=== PATIENT | female | born 1995 | race Caucasian/White ===

== ENCOUNTER 2017-09-10 22:51 | Emergency (ER) | payer BC, MEDICAID, SELFPAY ==
[2017-09-10 22:53] VITALS: BP 108/68; PULSE 78; RESP 18; TEMP 36.6; O2SAT 100; BMI 31.9
--- NOTE | 2017-09-10 23:22 | ED.VISSUMM ---
- ER Visit Summary Date of Service: 09/10/17 Chief Complaint: [] History of Present Illness: The patient is a 22 F [] Physical Examination: [] Test Results: [] Emergency Department Course and Treatment: [] Treatment Plan: [] Disposition: [] Impression: [] This note was generated with [employer] dictation software. It may contain incorrect words, spelling, and punctuation that were not noted in review of the chart prior to signing ED Disposition - Plan for ED Patient: Disposition: Home or Assisted Living Chief Complaint: Laceration Instructions: ED Laceration All, ED Laceration Ext Skin Glue Referrals: Care Physician,No Primary [Primary Care Provider] -
--- NOTE | 2017-09-10 23:23 | ED.VISSUMM ---
- ER Visit Summary Date of Service: 09/10/17 Chief Complaint: Hand laceration History of Present Illness: The patient is a 22 F incised her left hand with a knife prior to arrival no other injury unknown tetanus. Physical Examination: 1.5 cm laceration palm of her left hand no neurovascular compromise Test Results: [] Emergency Department Course and Treatment: Wound was approximated with Dermabond. Treatment Plan: [] Disposition: Discharged in stable condition Impression: 1.5 cm laceration left hand This note was generated with [employer] dictation software. It may contain incorrect words, spelling, and punctuation that were not noted in review of the chart prior to signing ED Disposition - Plan for ED Patient: Disposition: Home or Assisted Living Chief Complaint: Laceration Instructions: ED Laceration All, ED Laceration Ext Skin Glue Referrals: Care Physician,No Primary [Primary Care Provider] -
== END 2017-09-10 23:43 | disposition home or self-care (01) ==
LOC: ED 23:27
PROVIDERS: Emergency Provider Emergency Medicine
DX: S61.412A Laceration without foreign body of left hand, initial encounter (principal); W26.0XXA Contact with knife, initial encounter; Y93.9 Activity, unspecified; Y92.9 Unspecified place or not applicable
CPT/HCPCS: 12001; 99282

== ENCOUNTER 2017-12-12 01:12 | Emergency (ER) | payer BC, MEDICAID, SELFPAY ==
[2017-12-12 01:14] VITALS: BP 103/66; PULSE 79; RESP 18; TEMP 36.8; O2SAT 96; BMI 30.4
[2017-12-12 02:01] LABS: Bacteria 0 SEEN /hpf (None Seen); Mucous, Urine 0 SEEN /hpf (<or=2+); Red Blood Cells-Urine 0 SEEN /hpf (0-5); Squamous Epithelial Cells - UA 0 SEEN /hpf (5-10)
[2017-12-12 02:03] LABS: Color, Urine Yellow (Yellow); Glucose, Dipstick Normal (Normal); Ketone-Dipstick Negative (Negative); Leukocyte Esterase-Dipstick 500 /ul (Negative); Nitrite-Dipstick Negative (Negative); Occult Blood-Urine Negative /ul (Negative); Protein-Dipstick Negative (Negative); Urine Bilirubin Dipstick Negative (Negative); Urine Clarity Clear (Clear); Urine Urobilinogen 1 mg/dl (Normal)
[2017-12-12 02:06] LABS: Internal QC Validated? YES +Cl - CLEAR BKGD; Pregnancy, Urine Negative Negative
[2017-12-12 02:09] LABS: White Blood Cells 0-5 SEEN /hpf (0-5)
--- NOTE | 2017-12-12 02:50 | ED.DCSUM_ITS ---
- ER Visit Summary Date of Service: 12/12/17 Chief Complaint: Vaginal pain History of Present Illness: The patient is a 22 F who presents with vaginal pain. This is been present for about 4 days. It is sharp and burning. She denies vaginal bleeding or vaginal discharge. She denies dysuria frequency urge ncy or hematuria. Her last menstrual period was December 03 through the . Review of systems otherwise negative. Physical Examination: Afebrile vitals are normal Heart regular Lungs clear Abdomen soft and nontender Speculum examination does show some vaginal irritation as well as cervical erythema and thin white discharge Test Results: UA shows 500 leukocyte esterase otherwise normal. Urine negative. Emergency Department Course and Treatment: Patient does have some signs of vaginitis and cervicitis. We will empirically treat for sexually transmitted infection with intramuscular Rocephin and oral azithromycin. We did send off GC and chlamydia but will not get these results back tonight. She was advised to follow-up as an outpatient and was referred to gynecology. She understands return for new or worsening symptoms. She was discharged. Treatment Plan: [] Disposition: Discharge Impression: Cervicitis Vaginitis This note was generated with [employer] dictation software. It may contain incorrect words, spelling, and punctuation that were not noted in review of the chart prior to signing ED Disposition - Plan for ED Patient: Chief Complaint: Female C/O Referrals: Care Physician,No Primary [Primary Care Provider] -
--- NOTE | 2017-12-12 02:50 | ED.DEP ---
ED Disposition - Plan for ED Patient: Chief Complaint: Female C/O Instructions: ED VD Cervicitis Treated Referrals: Care Physician,No Primary [Primary Care Provider] - Rosibel Malik MD [STAFF PHYSICIAN] -
[2017-12-12] MEDS: Azithromycin 250 MG Tablet 1000 MG PO (02:54)
[2017-12-12] MEDS: Ceftriaxone 500 MG Vial 250 MG IM (03:12)
[2017-12-12 03:15] VITALS: BP 113/78; PULSE 71; RESP 17; O2SAT 99
[2017-12-12 07:11] LABS: Chlamydia Trachomatis by PCR Negative (Negative); Neisserai gonorrhoeae by PCR Negative (Negative); Probe Check PASS; Sample Adequacy Control PASS; Specimen Processing Control PASS
== END 2017-12-12 03:31 | disposition home or self-care (01) ==
PROVIDERS: Emergency Provider Emergency Medicine
DX: N76.0 Acute vaginitis (principal); N72 Inflammatory disease of cervix uteri; B96.89 Other specified bacterial agents as the cause of diseases classified elsewhere
CPT/HCPCS: 81001; 81025; 87491; 87591; 96372; 99283

== ENCOUNTER 2018-07-08 03:12 | Emergency (ER) | payer BC, MEDICAID, SELFPAY ==
[2018-07-08 03:14] VITALS: BP 110/78; PULSE 81; RESP 16; TEMP 36.7; O2SAT 98; BMI 31.1
--- NOTE | 2018-07-08 03:25 | ED.VIS.GEN ---
History of Present Illness Chief Complaint: Abscess Informant: Patient Narrative: She states she developed a small pustule on her right antecubital region 2 days ago. It started as a pimple. She is broken up and twice with a small amount of fluid and pus. She noticed some surrounding redness today with pain. She is never had this before. She did get a new tattoo a month ago. Denies IV drug use. Denies fevers or chills. Comes in for further evaluation. Current severity is mild. No fluctuance. - Past Medical History (1) Abdominal pain Status: Acute (2) Constipation Status: Acute (3) Ovarian cyst Status: Acute (4) Proctitis Status: Acute Past Medical History - Allergies and Home Meds Allergies/Adverse Reactions: Allergies ondansetron HCl [From Zofran (as hydrochloride)] Allergy (Verified 07/08/18 03:13) Hives Primary Care Physician: Care Physician,No Primary [Primary Care Provider] - Prior records reviewed: Yes Surgical History: noncontributory Lives: With Family Smoking Status: Never smoker Alcohol: None Drugs: None Review of Systems General: Denies: Chills, Fever, Sweats Eyes: Denies: Visual changes - bilaterally, Diplopia ENT: Denies: Rhinorrhea, Sore throat Cardiovascular: Denies: Chest pain, Palpitations Respiratory: Denies: Dyspnea, Cough, Dyspnea on exertion Gastrointestinal: Denies: Abdominal pain, Nausea, Vomiting, Diarrhea, Melena, Hematochezia Genitourinary: Denies: Dysuria, Hematuria, Frequency Musculoskeletal: Denies: Back pain, Extremity Pain Skin: Reports: Abscess. Denies: Rash, Wounds Neurological: Denies: Headache, Weakness, Numbness Physical Exam Vital Signs/Narrative: Vital Signs Temp Pulse Resp BP Pulse Ox 07/08/18 03:14 98.0 F 81 16 110/78 98 General: Well nourished, Well developed, No Acute Distress Head: Normocephalic, Atraumatic Eyes: Perrl, EOMI ENT: Moist mucous membranes, No rhinorrhea Neck: Supple, Nontender Cardiovascular: Regular rate, Regular rhythm, No murmurs Respiratory: No distress, CTA bilaterally, Chest nontender Abdomen: Soft, Nontender, Nondistended, Normal bowel sounds Back: Nontender, Normal Inspection Extremities: Nontender, No edema Skin: - - Very small skin pustule in the right antecubital measuring 2 x 2 mm. Squeezed with a tiny amount of green fluid. This is a very minuscule amount. No fluctuance. No large abscess. Mild surrounding erythema measuring 1-2 cm surrounding consistent with cellulitis. Negative for: Normal color, No rash Neurological: Alert, Oriented x3, Cranial nerves II-XII grossly intact, Normal Strength, Normal Sensation Psychological: Normal affect, Normal Mood Diagnostic/Tx/Re-eval - Medical Decision Making Patient has a superficial skin abscess. I squeeze this. There is a mild amount of fluid but no significant pus. Placed on Bactrim. She has a very slight cellulitis. This is due to her boil. She will follow-up as an outpatient. There is nothing to incise and drain as it is small ED Disposition - Plan for ED Patient: Disposition: Home or Assisted Living Diagnosis: Skin abscess Instructions: ED Staph Infec Abx Tx Only Prescriptions: Smz/Tmp Ds [Bactrim Ds] 1 tab PO BID #14 tab Referrals: Care Physician,No Primary [Primary Care Provider] - Jonathan Duong MD [STAFF PHYSICIAN] -
[2018-07-08] MEDS: Smz/Tmp Ds Tablet 1 TABLET PO (03:34)
[2018-07-08 03:44] VITALS: RESP 16
== END 2018-07-08 03:44 | disposition home or self-care (01) ==
LOC: ED 03:41
PROVIDERS: Emergency Provider Emergency Medicine
DX: L02.413 Cutaneous abscess of right upper limb (principal); L03.113 Cellulitis of right upper limb
CPT/HCPCS: 99283

== ENCOUNTER 2018-07-09 16:53 | Emergency (ER) | payer BC, MEDICAID, SELFPAY ==
[2018-07-08 03:14] VITALS: BMI 31.1
[2018-07-09 16:55] VITALS: BP 125/68; PULSE 94; RESP 18; TEMP 36.6; O2SAT 97; BMI 31.7
--- NOTE | 2018-07-09 19:15 | RAD_ITS ---
STUDY: X-RAY - RIGHT ELBOW REASON FOR EXAM: Female, 23 years old. Redness and swelling of the right elbow. Question infection. Question foreign body. TECHNIQUE: view(s) of the elbow. COMPARISON: None. FINDINGS: Normal visualized humerus, radius and ulna. Normal radiocapitellar and ulnotrochlear articulations. There is no acute fracture, dislocation or destructive osseous pathology. There is mild soft tissue prominence of the antecubital space.. There is no visualized foreign body. RAD/Elbow min 3 Views IMPRESSION: Soft tissue prominence of the antecubital space without underlying osseous or articular abnormality. Electronically Signed: Woody Haji DO at 19:34 EDT Tel [phone], Service support ,
[2018-07-09] MEDS: Doxycycline 100 MG CAPSULE PO (19:34)
[2018-07-09] MEDS: HYDROmorphone 1 MG/ML Syringe IM (19:34)
[2018-07-09 19:38] VITALS: RESP 18
--- NOTE | 2018-07-09 20:03 | ED.DCSUM_ITS ---
- ER Visit Summary Date of Service: 07/09/18 Chief Complaint: Abscess History of Present Illness: The patient is a 23 F who has no primary care physician. She has a history of ankylosing spondylitis and is on Remicade. She reports that she has swelling in her right antecubital fossa began 6 days ago. She has a an aching, sharp pain that is 10-10 at worst 9-10 currently. Is worsened by movement relieved by rest. She is right-hand dominant. Her tetanus is up-to-date. She denies any constitutional symptoms. No fever, chills, nausea, or vomiting. Patient reports that she began Bactrim 2 days ago and this is actually worsened rather than improved. Physical Examination: Vitals: Stable. Afebrile. General: Well-nourished and well-developed. Head: Normocephalic atraumatic. Neck: Supple, no lymphadenopathy. No JVD. Nontender. Cardiovascular: Regular rate and rhythm. No murmurs. Respiratory: No respiratory distress. Clear to auscultation bilaterally. Abdominal: Soft, nontender, nondistended, normal bowel sounds. No guarding, rebound, or peritoneal signs. Back: Nontender. Extremities: 3 cm of erythema just proximal to the antecubital fossa on the right. Is mildly tender to palpation. There is no lymphangitic spread. She is neurovascular intact distally. Skin: Normal color, no rash. Neurologic: Alert and oriented ?3. Cranial nerves II through XII are intact. Normal strength and sensation. Psych: Normal affect. Test Results: X-ray shows no foreign body. Emergency Department Course and Treatment: Patient was given a dose of Dilaudid IM and doxycycline p.o. She had an I&D performed. She tolerated this well. Treatment Plan: Patient be discharged instructions to follow-up Dr. Londono in 2 days for a wound check. Return to the emergency department for any wors ening symptoms. She is placed on [place] and doxycycline. She also given a prescription for Bactroban ointment. Disposition: To home in improved and stable condition. Impression: 1. Abscess right arm. 2. I&D. Procedure Note: Abscess was cleansed with chlorhexidine soap. Anesthetized with 1% lidocaine without epinephrine. An incision was made with an 11 scalpel blade. A moderate amount of pus was drained. Curved hemostats were used to break up loculations. The wound was copiously irrigated with normal saline. It was loosely packed with iodoform gauze. The patient tolerated it well. This note was generated with [employer] dictation software. It may contain incorrect words, spelling, and punctuation that were not noted in review of the chart prior to signing ED Disposition - Plan for ED Patient: Disposition: Home or Assisted Living Instructions: ED Abscess IandD Prescriptions: Hydrocodone Bitart/Apap 5-325 [[place] 5MG-325MG] 1 tablet PO Q4H PRN PRN 2 Days #10 tablet PRN Reason: Pain Doxycycline 100 mg PO BID #14 capsule Mupirocin [Bactroban] 1 applic TOPICAL TID #1 tube Referrals: Katherine Londono DO [STAFF PHYSICIAN] - 2 Days for wound check
[2018-07-09 20:35] VITALS: BP 103/64; PULSE 70; RESP 18; O2SAT 98
== END 2018-07-09 20:30 | disposition home or self-care (01) ==
PROVIDERS: Emergency Provider Emergency Medicine
DX: L02.413 Cutaneous abscess of right upper limb (principal); M45.9 Ankylosing spondylitis of unspecified sites in spine
CPT/HCPCS: 10060; 73080; 96372; 99283

== ENCOUNTER 2018-07-11 13:52 | Observation (INO) | payer BC, MEDICAID, SELFPAY ==
[2018-07-11] VITALS (10 sets, daily range): BP systolic 89–116; BP diastolic 61–87; PULSE 63–110; RESP 14–18; TEMP 36.4–36.8; O2SAT 93–100; BMI 31.7; BMI 31.6
--- NOTE | 2018-07-11 09:21 | CT_ITS ---
STUDY: CT RIGHT ELBOW WITHOUT CONTRAST REASON FOR EXAM: Right elbow pain, abscess drained in the emergency room, scheduled for surgery. History of ankylosing spondylitis. TECHNIQUE: Transaxial CT imaging of the elbow was performed. Sagittal and coronal images were reconstructed. Individualized dose optimization techniques were used for this CT. COMPARISON: Radiographs 07/09/2018. FINDINGS: Normal visualized humerus, radius and ulna. Normal radiocapitellar and ulnotrochlear articulations. There is soft tissue swelling at the anterior aspect of the elbow and a small soft tissue defect (axial images 51-56) and a small fluid collection containing two small pockets of gas (axial images 58, 59) measuring 0.6 x 1.0 cm (AP x transverse), a suspected soft tissue abscess by history. There is no demonstrated joint effusion CT/Extremity Upper without Contra IMPRESSION: Soft tissue swelling with suspected small soft tissue abscess. No demonstrated osseous destruction to indicate osteomyelitis. Electronically Signed: Moreno Olivas MD at 9:55 EDT Tel , Service support ,
[2018-07-11 10:20] LABS: Internal QC Validated? YES +Cl - CLEAR BKGD; Pregnancy, Urine Negative Negative
--- NOTE | 2018-07-11 10:31 | PCM.OPRPT ---
Report of Operation Date of Procedure: 07/11/18 Pre-Operative Diagnosis: right antecubital abscess after remicaide infusion Post-Operative Diagnosis: same Surgery/Procedure Performed:: right antecubital incision/drainage, irrigation and debridement
[2018-07-11] MEDS: Cefazolin 2 GM in 0.9% Normal Saline 100 ML IV (13:20)
--- NOTE | 2018-07-11 13:51 | OP.PCM_ITS ---
Problem List (1) Abscess Status: Acute (2) Cellulitis Status: Acute Qualifiers: Site of cellulitis: extremity Laterality: right Report of Operation Date of Procedure: 07/11/18 Pre-Operative Diagnosis: right superficial abscess of antecubital fossa Post-Operative Diagnosis: same Surgery/Procedure Performed:: incision and drainage/irrigation and debridement of right superficial antecubital fossa Type of Anesthesia:: General Anesthesiologist: Brown Lopez Estimated Blood Loss (mL): minimal Fluids Replaced: 800ml lr Description of Procedure: Preop note Patient is a 23-year-old female who about 15 days ago had a Remicade infusion to her right and the capital fossa. Few days later he noticed a pimple started getting increasing red and warm went and saw the emergency room they placed her on a total place start Bactroban and sent her home it increased and worsened she went back to the ER where they lanced it and sent her home on antibiotics. She continued to worsen and was to my office today. Patient states that she is about the same she has not gotten worse however the redness seems to be spreading slightly medial. No fever chills or other constitutional symptoms. Patient presented to my office and we had a stat CT scan that showed air concerning for an abscess so he was taken urgently to the operating room. Risks benefits and alternatives surgery discussed the patient. Risks include but not limited to blood loss of blood clot, infection, neurovascular injury, failure procedure, loss of life and loss of limb. Patient is aware he would like to proceed with right antecubital fossa irrigation and debridement incision and drainage. Operative note next Patient seen and examined preop holding area. Right elbow was marked. Patient brought to the operating placed supine on the operating table. Signed, anesthesia and antibiotics was held until cultures were taken. The right arm was prepped and draped in usual sterile fashion with a tourniquet around her upp er arm. A timeout was performed. We elevated the arm and tourniquet was raised to a pressure of 250 torr. We then extended the incision at the site of where she had a pimple that was lanced by the ER both medial and laterally about 4 cm. we used a 15 blade and dissected down to Lamisil and the subcutaneous tissue which was debrided gently down to the muscle which is everything with debride any loose tissue was gently debrided out and knee there is no is a little bit of purulence that occurred on the more proximally. We took cultures and antibiotics was then started. We then again irrigated the incision with copious muscle sterile saline. We closed our incision with 4-0 nylon leaving a small x- ray impacted with one quarter iodoform packing. Sterile dressings were applied and an Kt wrap. Patient transferred to recovery room in stable condition no complications patient tired procedure well. Tourniquet total tourniquet time 20 minutes. Postoperative We will remove packing tomorrow next Consult wound care Call increased pain numbness tingling further issues arise Continue her doxycycline as an outpatient as Ancef overnight Weight-bear as tolerated bilateral lower extremity nonweightbearing right arm
[2018-07-11 14:46] LABS: Hematocrit 36.4 % (37-47); Hemoglobin 12.4 g/dl (12.0-15.0); Mean Corp Hgb Conc 34.1 g/gl (32-36); Mean Corpuscular Hgb 29.5 pg (27.0-32.0); Mean Corpuscular Volume 86.5 fL (81-99); Platelet Count 240 K/mm3 (150-450); RBC Distribution Width CV 11.5 % (11.6-14.6); RBC Distribution Width SD 35.9 fl (35.1-43.9); Red Blood Count 4.21 M/mm3 (4.2-5.4); Scan Indicated on CBC? Y/N NO; White Blood Count 7.2 K/mm3 (4.4-11.0)
[2018-07-11 17:33] LABS: Erythrocyte Sedimentation Rate 33 mm/hr (0-20)
[2018-07-11] MEDS: HYDROcodone Bitartrate/Apap 5/325 Tablet PO (17:48)
[2018-07-11] MEDS: 0.9% NaCl Peripheral Flush Adult/Peds IV (21:44)
[2018-07-11] MEDS: Cefazolin 1 GM/50 ML BAG IV (21:44)
[2018-07-12 01:55] VITALS: BP 105/69; PULSE 69; RESP 16; TEMP 36.5; O2SAT 97
[2018-07-12] MEDS: HYDROcodone Bitartrate/Apap 5/325 Tablet PO ×3 (02:00→12:54)
[2018-07-12] MEDS: Cefazolin 1 GM/50 ML BAG IV (05:19)
[2018-07-12] MEDS: 0.9% NaCl Peripheral Flush Adult/Peds IV (05:19)
[2018-07-12 06:54] LABS: Absolute Lymphocyte Count 1.66 X10^3/ul (0.83-4.51); Absolute Neutrophil Count 8.6 X10^3/uL (2.0-7.7); Basophil# 0.02 X10^3/uL; Basophil% 0.2 % (0-1); Eosinophil# 0.02 X10^3/uL; Eosinophils% 0.2 % (0-5); Hematocrit 38.4 % (37-47); Hemoglobin 12.9 g/dl (12.0-15.0); Lymphocyte # 1.66 X10^3/ul (4.0); Lymphocyte % 14.6 % (19-41); Mean Corp Hgb Conc 33.6 g/gl (32-36); Mean Corpuscular Hgb 29.1 pg (27.0-32.0); Mean Corpuscular Volume 86.7 fL (81-99); Mean Platelet Vol. 11.4 fl (6.2-12.0); Monocyte# 1.09 X10^3/uL; Monocyte% 9.6 % (0-10); Neutrophil # 8.58 X10^3/uL (2.7-7.7); Neutrophil % 75.1 % (47-70); Platelet Count 258 K/mm3 (150-450); RBC Distribution Width CV 11.4 % (11.6-14.6); RBC Distribution Width SD 35.3 fl (35.1-43.9); Red Blood Count 4.43 M/mm3 (4.2-5.4); White Blood Count 11.4 K/mm3 (4.4-11.0)
[2018-07-12 06:56] LABS: POSITIVE COUNT NO; POSITIVE DIFFERENTIAL NO; POSITIVE MORPHOLOGY NO
[2018-07-12 07:27] VITALS: BP 118/75; PULSE 56; RESP 16; TEMP 36.5; O2SAT 100
--- NOTE | 2018-07-12 09:10 | NURSING ---
wound photo: right antecub
--- NOTE | 2018-07-12 12:40 | PCM.DC.ORTHO ---
Discharge Diet: No Restrictions Discharge Activity: May not drive while taking narcotic pain medications., May Not Shower, May Take a Tub Bath - Do not soak or immerse right arm. Try and keep try and pat dry if it gets wet at all. Return to work on:: 08/05/18 - tentative return to work based on recovery May resume sexual activity in: No Restrictions Weight Bearing Status: Weight bearing as tolerated Lifting Restrictions: 2 pound lifting restriction until follow-up Keep extremity elevated above heart level: Right Arm Additional Activity Instructions:: No lifting, hanging from the arm, or forceful or repeated elbow flexion Call your doctor if your incision/area has: Sudden Increased Bleeding, Increased Pain/ Swelling, Increased Redness, Foul Smelling Discharge, Swelling at the incision site Call your doctor if you observe: Fever of 101 or Higher, Numbness or Tingling, Change in Color, Shortness of breath, Dizziness, Swelling in the ankles, Chest pain, Calf discomfort, Uncontrolled pain Suture Line Care: Avoid Pulling/Pushing, Avoid Pinching/Bending Change Dressing in (Days):: 48 - hours Cleanse incision/area with: Keep Dressing Clean & Dry Allergies/Adverse Reactions: Allergies ondansetron HCl [From Zofran (as hydrochloride)] Allergy (Verified 07/09/18 16:53) Hives promethazine [From Phenergan] Adverse Reaction (Verified 07/09/18 20:04) Other pt states her body was tingling and she was uncomfortable. Medications to take at Discharge Calcium Carbonate [Calcium] 600 mg PO DAILY 03/18/15 Cholecalciferol (VIT D3) [Vitamin D] 1,000 unit PO DAILY 03/18/15 Celecoxib [Celebrex] 200 mg PO BID 03/07/17 Doxycycline 100 mg PO BID #14 capsule 07/09/18 Infliximab [Remicade] 5 mg IV QMONTH 07/09/18 Mupirocin [Bactroban] 1 applic TOPICAL TID #1 tube 07/09/18 Primary Care Physician: Care Physician,No Primary [Primary Care Provider] - Test Results: Test results from this visit will be discussed in further detail at your follow-up appointment, if applicable. Please Follow Up With: uJdie Cardenas MD - Wound center When: Sunday05-17-18 Proposed Discharge Date: 07/12/18
--- NOTE | 2018-07-12 12:44 | DCINST_ITS ---
Discharge Diet: No Restrictions Discharge Activity: May not drive while taking narcotic pain medications., May Not Shower, May Take a Tub Bath - Do not soak or immerse right arm. Try and keep try and pat dry if it gets wet at all. Return to work on:: 08/05/18 - tentative return to work based on recovery May resume sexual activity in: No Restrictions Weight Bearing Status: Weight bearing as tolerated Lifting Restrictions: 2 pound lifting restriction until follow-up Keep extremity elevated above heart level: Right Arm Additional Activity Instructions:: No lifting, hanging from the arm, or forceful or repeated elbow flexion Call your doctor if your incision/area has: Sudden Increased Bleeding, Increased Pain/ Swelling, Increased Redness, Foul Smelling Discharge, Swelling at the incision site Call your doctor if you observe: Fever of 101 or Higher, Numbness or Tingling, Change in Color, Shortness of breath, Dizziness, Swelling in the ankles, Chest pain, Calf discomfort, Uncontrolled pain Suture Line Care: Avoid Pulling/Pushing, Avoid Pinching/Bending Change Dressing in (Days):: 48 - hours Cleanse incision/area with: Keep Dressing Clean & Dry Allergies/Adverse Reactions: Allergies ondansetron HCl [From Zofran (as hydrochloride)] Allergy (Verified 07/09/18 16:53) Hives promethazine [From Phenergan] Adverse Reaction (Verified 07/09/18 20:04) Other pt states her body was tingling and she was uncomfortable. Medications to take at Discharge Calcium Carbonate [Calcium] 600 mg PO DAILY 03/18/15 Cholecalciferol (VIT D3) [Vitamin D] 1,000 unit PO DAILY 03/18/15 Celecoxib [Celebrex] 200 mg PO BID 03/07/17 Doxycycline 100 mg PO BID #14 capsule 07/09/18 Infliximab [Remicade] 5 mg IV QMONTH 07/09/18 Mupirocin [Bactroban] 1 applic TOPICAL TID #1 tube 07/09/18 Primary Care Physician: Care Physician,No Primary [Primary Care Provider] - Test Results: Test results from this visit will be discussed in further detail at your follow- up appointment, if applicable. Please Follow Up With: Judie Cardenas MD - Wound center When: Sunday05-17-18 Proposed Discharge Date: 07/12/18
[2018-07-12 12:55] VITALS: BP 106/66; PULSE 73; RESP 16; TEMP 36.6; O2SAT 99
--- NOTE | 2018-07-12 13:52 | CASEMGMT ---
RN CM NOTE: Script for wound care supplies received from [facility]. Script placed with discharge instructions for RN to give to pt. Linda CINTRONN RN CM
--- NOTE | 2018-07-12 15:42 | NURSING ---
pt and mother shown how to change dressing to right arm.
== END 2018-07-12 15:32 | disposition home or self-care (01) ==
LOC: MS3 14:37
PROVIDERS: Anesthesiology; Admitting Provider Orthopaedic Surgery; Referring Provider Orthopaedic Surgery; Visit Provider Orthopaedic Surgery
PROC: (CPT 11042; principal; 2018-07-11 12:05)
DX: L02.413 Cutaneous abscess of right upper limb (principal); L03.113 Cellulitis of right upper limb; Z79.899 Other long term (current) drug therapy; M45.9 Ankylosing spondylitis of unspecified sites in spine; B96.89 Other specified bacterial agents as the cause of diseases classified elsewhere; M79.89 Other specified soft tissue disorders; B99.9 Unspecified infectious disease
CPT/HCPCS: 00400; 11042; 36415; 73200; 81025; 85025; 85027; 85652; 86140; 87070; 87075; 87077; 87102; 87186; 87205; 87206; 96365; 96366; 99218; J7120; A4216; G0378; G0379; J2405

== ENCOUNTER 2018-07-17 09:26 | Outpatient (RCR) | payer BC, SELFPAY ==
[2018-07-11 15:40] VITALS: BMI 31.6
== END 2018-08-16 23:59 ==
LOC: WC 09:26
PROVIDERS: Visit Provider Internal Medicine
DX: Z09 Encounter for follow-up examination after completed treatment for conditions other than malignant neoplasm (principal)

== ENCOUNTER 2018-08-21 09:00 | Outpatient (RCR) | payer BC, MEDICAID, SELFPAY ==
[2018-07-25 13:35] VITALS: BMI 31.6
--- NOTE | 2018-07-29 12:35 | HP.OTEVAL ---
Patient's Visit Information CARYN LEMUS is a 23 year old F, referred to Occupational Therapy by Katherine Londono DO, with a diagnosis of s/p L and D of Right Antecubital fossa. Date of Evaluation: 07/29/18 Occupational Therapist: Deysi Elizabeth, OTR/L - Subjective Subjective: Caryn arrived to OT evaluation on this date of 07/29/18. She noted she is s/p drainage of R elbow over antecubital fossa on 07/11/18. 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 She is required to light about 25 lbs a part consistently throughout the day. - ADLs Dressing: Bra Eating: Cut food Grooming: double surface operator, Curling iron Kitchen: Chop with knife, Peel fruits & vegetables, Open jars, Open bottle caps, Ziplock bags, Lift gallon of milk, Pour from pitcher, Lift saucepan, Take dish out of oven, Load/unload fur tailor Household: Vacuum, Sweep/mop Miscellaneous: Unlock front door, Pump gas, Drive - Pain Right Elbow 3 Pain Intensity Range: 1, 3, 7, 8 - ROM Elbow: R 0-120, L 0-125; supination R 0-85, L 0-81 Forearm: WFL Wrist: WFL MP: WFL PIP: WFL DIP: WFL - Strength Venue Attendant: flexion R 53, L 55; extended R 54 (pain: 3/10), L 60 Lateral Pinch: R 16, L 16 Tripod Pinch: R 14, L 13 Tip-to-Tip Pinch: R 12, L 10 Strength Comments: Increased pain with resistance at hand. - Sensation Thumb: R 2.83, L 2.83 Index: R 2.83, L 2.83 Middle: R 2.83, L 2.83 Ring: R 2.83, L 2.83 Little: R 2.83, L 2.83 Sensation Comments: She noted she is getting tingling in and around scar; noted if she cooks too long she noted increased tingling radiaiting down to PF. She would benefit froms car management techniques and desensitization protocol for scar. - Nine Hole Peg Right: 24.0 6 s Left: 22.30 s - Quick DASH-Disab of Arm,Shoulder& Hand Quick DASH Score: 38.3325 - Goals Goal:: Caryn to increased R linoleum layer by 10-15 lbs to promote increased ROM and strength 4/5 trials 80% of the time to promote returning to PLOF by d/c. Goal:: Caryn to complete pain management techniques to manage pain at 1/10 for repetitive movement tasks 4/5 trials 80% of the time by d/c. Goal:: Caryn to complete edema management techniques to promote increased ROM and decrease pain as needed t/o the day 4/ 5 trials 80% of the time by d/c. Goal:: Caryn to complete desensitization program and daily scar massage to promote increased movement and decreased tingling sensation and hypersensitivty 4/5 trials 80% of the time by d/c . Goal:: Caryn to complete ergonomic and joint protection training to promote increased ability to complete returning to FT Work at PLOF 4/5 trials 80% of the time by d/c. Goal:: Caryn to be be mod I to complete daily HEP for ROM, scar massage, edema management (if needed), and strengthening 4/5 trials 80% of the time to promote returning to PLOF by d/c. - Rehabilitation General Assessment: Caryn arrived to OT evaluation on this date of 07/29/18. She is s/p drainage of right antecubital fossa that MRSA infection had been confirmed. She has significant PMHx of ankylosing spondylitis. Caryn exhibits good ROM but decreased strength and increased pain with movement of right elbow. She exhibits some decreased coordination skills of R dominant hand through 9-hole pegboard test. Caryn would benefit from skilled OT services to promote increased ROM, strength, desensitization of scar and increased ability to return to PLOF. Rehabilitation Potential: Good - Anticipated Interventions Anticipated Interventions: A/AAROM/PROM, Strengthening, Edema Control, Desensitization, Sensory Retraining, Wound Care, Modalities, Joint Protection/Energy Conservation, Ergonomic Education, Fine Motor Coord/Edwar, Cognitive Skills, ADL Training, Caregiver Training, Home Program - Visit Plan Frequency: 2x /Week Duration: 4 Weeks General Plan: Caryn to complete skilled OT to promote ROM, strength, edema management, desensitization techniques, scar management, and general progress to return to PLOF for all ADl/IAdls tasks. TEXT: Thank you for the opportunity to evaluate your patient. For Medicare and Medicare HMO plans, please review the plan of care and approve it. It will need to be FAXED BACK to us at [phone] for Medicare purposes. Please let me know if there are questions or concerns regarding this plan of care. Physician Signature: Date:
--- NOTE | 2018-08-20 09:02 | HP.OTREVAL ---
Katherine Londono, DO, It has been my pleasure to treat CARYN LEMUS over the last 6 visits for s/p L and D of Right Antecubital fossa. Please see the progress note below for an update on the occupational therapy plan of care! Subjective: Arrived and noted pain has increased over the last week since returning to work. Noted she is completing work tasks but is getting ' sharp shooting pains. Objective/Function: Measurements: Strength. Cash Van Salesperson: flexed R 49, L 54; extended R 48, L 50. Lateral: R 15, L 15. Tripod: R 11, L 12. Pincer: R 10, L 10. Scar tender with palpation. No sign of infection but some mild routine reddness from healing. Plan Frequency: 2x /Week Duration: 4 Weeks Visits in this POC: 8 Plan: continue POC ulnar nerve glides as well as OT for next one- two visits. Continued HEP as instructed and trial some theraband exercises to promote increased strength and stability to elbow. Goals - Goals Goal:: Caryn to increased R croze cutter helper by 10-15 lbs to promote increased ROM and strength 4/5 trials 80% of the time to promote returning to PLOF by d/c. Goal:: Caryn to complete pain management techniques to manage pain at 1/10 for repetitive movement tasks 4/5 trials 80% of the time by d/c. Goal:: Caryn to complete edema management techniques to promote increased ROM and decrease pain as needed t/o the day 4/ 5 trials 80% of the time by d/c. Goal:: Caryn to complete desensitization program and daily scar massage to promote increased movement and decreased tingling sensation and hypersensitivty 4/5 trials 80% of the time by d/c . Goal:: Caryn to complete ergonomic and joint protection training to promote increased ability to complete returning to FT Work at PLOF 4/5 trials 80% of the time by d/c. Goal:: Caryn to be be mod I to complete daily HEP for ROM, scar massage, edema management (if needed), and strengthening 4/5 trials 80% of the time to promote returning to PLOF by d/c. Anticipated Interventions Anticipated Interventions: A/AAROM/PROM, Strengthening, Edema Control, Desensitization, Sensory Retraining, Wound Care, Modalities, Joint Protection/Energy Conservation, Ergonomic Education, Fine Motor Coord/Edwar, Cognitive Skills, ADL Training, Caregiver Training, Home Program Please do not hesitate to contact me at [phone] by phone or if you have questions or concerns regarding this new plan of care! Sincerely, Deysi Elizabeth, OTR/L
--- NOTE | 2018-08-21 09:35 | HP.OTREVAL ---
Katherine Londono, DO, It has been my pleasure to treat CARYN LEMUS over the last 7 visits for s/p L and D of Right Antecubital fossa. Please see the progress note below for an update on the occupational therapy plan of care! Subjective: Arrived and noted pain about 5/10 pain. Noted she can complete 3-3.5 hours at work prior to getting 'sharp shooting pain'. She noted that has been different jobs of repetitively lifting about 10 lbs. She noted she often notices that when getting hot or increased humidity R elbow gets red and hurts. She does have PMHx significant for RA like arthritis. Objective/Function: Completed reassessment on this date of 09/04/18: Strength. Dance Director: flexed R 53, L 50; extended R 56, L 46. Lateral: R 16, L 16. Tripod: R 15, L 12. Pincer R 12, L 12. Measurements on 08/20/18: Strength. Dance Director: flexed R 49, L 54; extended R 48, L 50. Lateral: R 15, L 15. Tripod: R 11, L 12. Pincer: R 10, L 10. Increased measurements within a day. Mild reddness around scar. No heat or tenderness with palpation. Plan Frequency: 2x /Week Duration: 4 Weeks Visits in this POC: 8 Plan: continue POC with 1x follow up in week in a half to two weeks while she continues HEP at home to promote healing. She is to continue HEP of strengthening, ulnar nerve glides, ice/contrast bath as needed, and working on adjusting ergonomics at work to promote body mechanics. She has been educated to complete tasks and that some of the pain could be from inflammation post infection. Additionally, scar is no longer tender with palpation and desensitization protocol has worked well. She does have concerns of pain related to infection but has follow up with Dr. Londono tomorrow. There are no visible signs of infection at this time. No puss or heat to touch. Goals - Goals Goal:: Caryn to increased R compliance program manager by 10-15 lbs to promote increased ROM and strength 4/5 trials 80% of the time to promote returning to PLOF by d/c. Goal:: Caryn to complete pain management techniques to manage pain at 1/10 for repetitive movement tasks 4/5 trials 80% of the time by d/c. Goal:: Caryn to complete edema management techniques to promote increased ROM and decrease pain as needed t/o the day 4/ 5 trials 80% of the time by d/c. Goal:: Caryn to complete desensitization program and daily scar massage to promote increased movement and decreased tingling sensation and hypersensitivty 4/5 trials 80% of the time by d/c . Goal:: Caryn to complete ergonomic and joint protection training to promote increased ability to complete returning to FT Work at PLOF 4/5 trials 80% of the time by d/c. Goal:: Caryn to be be mod I to complete daily HEP for ROM, scar massage, edema management (if needed), and strengthening 4/5 trials 80% of the time to promote returning to PLOF by d/c. Anticipated Interventions Anticipated Interventions: A/AAROM/PROM, Strengthening, Edema Control, Desensitization, Sensory Retraining, Wound Care, Modalities, Joint Protection/Energy Conservation, Ergonomic Education, Fine Motor Coord/Edwar, Cognitive Skills, ADL Training, Caregiver Training, Home Program Please do not hesitate to contact me at [phone] by phone or if you have questions or concerns regarding this new plan of care! Sincerely, Deysi Elizabeth, LESLIER/L
--- NOTE | 2018-08-21 09:39 | OTREVAL_ITS ---
Katherine Londono, DO, It has been my pleasure to treat CARYN LEMUS over the last 7 visits for s/p L and D of Right Antecubital fossa. Please see the progress note below for an update on the occupational therapy plan of care! Subjective: Arrived and noted pain about 5/10 pain. Noted she can complete 3-3.5 hours at work prior to getting 'sharp shooting pain'. She noted that has been different jobs of repetitively lifting about 10 lbs. She noted she often notices that when getting hot or increased humidity R elbow gets red and hurts. She does have PMHx significant for RA like arthritis. Objective/Function: Completed reassessment on this date of 09/04/18: Strength. Cover Creaser: flexed R 53, L 50; extended R 56, L 46. Lateral: R 16, L 16. Tripod: R 15, L 12. Pincer R 12, L 12. Measurements on 08/20/18: Strength. Cover Creaser: flexed R 49, L 54; extended R 48, L 50. Lateral: R 15, L 15. Tripod: R 11, L 12. Pincer: R 10, L 10. Increased measurements within a day. Mild reddness around scar. No heat or tenderness with palpation. Plan Frequency: 2x /Week Duration: 4 Weeks Visits in this POC: 8 Plan: continue POC with 1x follow up in week in a half to two weeks while she continues HEP at home to promote healing. She is to continue HEP of strengthening, ulnar nerve glides, ice/contrast bath as needed, and working on adjusting ergonomics at work to promote body mechanics. She has been educated to complete tasks and that some of the pain could be from inflammation post infection. Additionally, scar is no longer tender with palpation and desensitization protocol has worked well. She does have concerns of pain related to infection but has follow up with Dr. Londono tomorrow. There are no visible signs of infection at this time. No puss or heat to touch. Goals - Goals Goal:: Caryn to increased R interpretive program coordinator by 10-15 lbs to promote increased ROM and strength 4/5 trials 80% of the time to promote returning to PLOF by d/c. Goal:: Caryn to complete pain management techniques to manage pain at 1/10 for repetitive movement tasks 4/5 trials 80% of the time by d/c. Goal:: Caryn to complete edema management techniques to promote increased ROM and decrease pain as needed t/o the day 4/ 5 trials 80% of the time by d/c. Goal:: Caryn to complete desensitization program and daily scar massage to promote increased movement and decreased tingling sensation and hypersensitivty 4/5 trials 80% of the time by d/c . Goal:: Caryn to complete ergonomic and joint protection training to promote increased ability to complete returning to FT Work at PLOF 4/5 trials 80% of the time by d/c. Goal:: Caryn to be be mod I to complete daily HEP for ROM, scar massage, edema management (if needed), and strengthening 4/5 trials 80% of the time to promote returning to PLOF by d/c. Anticipated Interventions Anticipated Interventions: A/AAROM/PROM, Strengthening, Edema Control, Desensitization, Sensory Retraining, Wound Care, Modalities, Joint Protection/Energy Conservation, Ergonomic Education, Fine Motor Coord/Edwar, Cognitive Skills, ADL Training, Caregiver Training, Home Program Please do not hesitate to contact me at [phone] by phone or Fax: if you have questions or concerns regarding this new plan of care! Sincerely, Deysi Elizabeth, LESLIER/L
--- NOTE | 2018-09-04 09:16 | HP.OTDCSUM ---
HP - OT D/C Summary It has been my pleasure to treat CARYN LEMUS under orders from Katherine Londono DO, for the diagnosis of s/p L and D of Right Antecubital fossa for a total of 7 visit(s). Please see the following information for a summary of their discharge status. - Overall Improvement % Improvement: 65 - Objective Objective/Function: Completed reassessment on this date of 09/04/18: Strength. Clerical Aide Teacher: flexed R 53, L 50; extended R 56, L 46. Lateral: R 16, L 16. Tripod: R 15, L 12. Pincer R 12, L 12. Measurements on 08/20/18: Strength. Clerical Aide Teacher: flexed R 49, L 54; extended R 48, L 50. Lateral: R 15, L 15. Tripod: R 11, L 12. Pincer: R 10, L 10. Increased measurements within a day. Mild reddness around scar. No heat or tenderness with palpation. 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 Goal:: Caryn to complete pain management techniques to manage pain at 1/10 for repetitive movement tasks 4/5 trials 80% of the time by d/c. Goal:: Caryn to complete edema management techniques to promote increased ROM and decrease pain as needed t/o the day 4/ 5 trials 80% of the time by d/c. Goal:: Caryn to complete desensitization program and daily scar massage to promote increased movement and decreased tingling sensation and hypersensitivty 4/5 trials 80% of the time by d/c . Goal:: Caryn to complete ergonomic and joint protection training to promote increased ability to complete returning to FT Work at PLOF 4/5 trials 80% of the time by d/c. Goal:: Caryn to be be mod I to complete daily HEP for ROM, scar massage, edema management (if needed), and strengthening 4/5 trials 80% of the time to promote returning to PLOF by d/c. - Plan Plan: She will be d/c'd as did not follow up at two week appointment. She is to continue HEP to promote healing, pain management, and strength. HEP includes strengthening, ulnar nerve glides, ice/contrast bath as needed, and working on adjusting ergonomics at work to promote body mechanics. She has been educated to complete tasks and that some of the pain could be from inflammation post infection. Additionally, scar is no longer tender with palpation and desensitization protocol has worked well. She does have concerns of pain related to infection but has follow up with Dr. Londono tomorrow. There are no visible signs of infection at this time. No puss or heat to touch. She is to call questions/concerns. - D/C Information If there are questions or concerns regarding this patient's occupational therapy, please fell free to call me at [phone]. Thank you for the referral of this patient. Sincerely, Deysi Elizabeth, OTR/L
== END 2018-08-21 19:00 | disposition home or self-care (01) ==
LOC: OT 09:00
PROVIDERS: Referring Provider Orthopaedic Surgery; Visit Provider Orthopaedic Surgery
DX: Z98.890 Other specified postprocedural states (principal)
CPT/HCPCS: 97110; 97140; 97166; 97530

== ENCOUNTER 2020-10-05 13:36 | Emergency (ER) | payer BC, SELFPAY ==
[2018-10-03 08:43] VITALS: BMI 31.6
[2020-10-05 13:36] VITALS: BP 123/77; PULSE 90; RESP 16; TEMP 36.6; O2SAT 96; BMI 29.8
[2020-10-05 13:52] VITALS: BP 106/76; PULSE 89; RESP 18; TEMP 37; O2SAT 97
--- NOTE | 2020-10-05 14:11 | EX.ED.DYSGE1 ---
HPI History of Present Illness Chief Complaint: Wound Check Informant: patient Narrative Narrative: 25-year-old female states she has a MRSA infection in one of her cholecystectomy sites. Patient states she had a cholecystectomy at [facility] at the end of August. She states that yesterday she noticed a small pimple by her laparoscopic surgical site from the lower right. She states today it is extremely painful and she knows that it is infected. She states that she was recently admitted into [facility] for a abdominal infection but cannot be any more specific or provide any more information about it [facility] Medical History Ankylosing spondylitis Celiac disease Depression MRSA (methicillin resistant Staphylococcus aureus) Ovarian cyst Home Medications calcium carbonate 600 mg PO DAILY 03/18/15 [History Last Taken Unknown] cholecalciferol (vitamin D3) [Vitamin D] 1,000 unit PO DAILY 03/18/15 [History Last Taken Unknown] celecoxib 200 mg PO BID 03/07/17 [History Last Taken Unknown] doxycycline monohydrate 100 mg PO BID #14 capsule 07/09/18 [Rx Last Taken Unknown] infliximab [Remicade] 5 mg IV QMONTH 07/09/18 [History Last Taken Unknown] albuterol sulfate 2 puff INHALATION Q6H PRN 10/05/20 [History Last Taken Unknown] cyclobenzaprine 10 mg PO TID PRN 10/05/20 [History Last Taken Unknown] etodolac 500 mg PO BID 10/05/20 [History Last Taken Unknown] omeprazole 20 mg PO BID 10/05/20 [History Last Taken Unknown] ondansetron 4 mg PO Q8H PRN 10/05/20 [History Last Taken Unknown] sulfamethoxazole-trimethoprim 1 tab PO BID #14 tablet 10/05/20 [Rx Last Taken Unknown] Allergy/AdvReac Type Severity Reaction Status Date / Time promethazine [From Phenergan] AdvReac Other Verified 10/05/20 13:58 Surgical History h/o right elbow I&D History of cholecystectomy Social History (Updated 10/05/20 @ 14:[address] Davian Farrell DO) Smoking Status: Never smoker substance use type: does not use ROS ROS ED Constitutional Constitutional ED: Denies chills or weight loss Eyes Eyes: Denies change in vision or diplopia ENT ENT ED: Denies ear pain, rhinorrhea or sore throat Cardiovascular Cardiovascular: Denies chest pain, orthopnea, palpitations or racing heartbeat Respiratory/Chest Respiratory/Chest: Denies cough, dyspnea or orthopnea Gastrointestinal Gastrointestinal: Denies abdominal pain, diarrhea, nausea or vomiting Genitourinary Genitourinary ED: Denies dysuria, hematuria or urinary frequency Musculoskeletal Musculoskeletal: Denies arthralgias or myalgias Integumentary Reports rash; Denies abscess Neurologic Neurologic: Denies headache(s) or weakness Psychiatric Psychiatric: Denies anxiety, depression, suicidal ideation or suicidal thoughts Endocrine Endocrinology: Denies polydipsia, polyphagia or polyuria Allergic/Immunologic Allergic/Immunologic ED: Denies mouth swelling, tongue swelling or urticaria EXAM Physical Exam Const Vital Signs: 10/05/20 13:36 10/05/20 13:52 Temperature 97.9 F 98.6 F Temperature Source Temporal Temporal Pulse Rate 90 89 Respiratory Rate 16 18 Blood Pressure 123/77 H 106/76 Blood Pressure Mean 92 86 Pulse Ox 96 97 Oxygen Delivery Method Room Air Room Air Positive well nourished and well developed General Appearance ED: well developed HEENT Reports normocephalic, head/scalp atraumatic and moist mucous membranes Eyes PERRL and EOMs intact bilaterally Neck no lymphadenopathy, supple and no JVD Resp normal respiratory effort and clear to auscultation bilaterally Cardio regular rate, regular rhythm and no murmurs GI normal to inspection, nondistended, normoactive bowel sounds GI Narrative: Located next to a well-healed laparoscopic incision is a dime size area of redness. There is no fluctuance induration. Patient reports tenderness Palpation: soft Back/Spine no CVA tenderness and normal ROM Extremity normal to inspection General Extremety ED: Negative for edema General Extremity: Negative for edema Neuro oriented x3 and CN's II-XII intact bilaterally Sensorium / Orientation: alert Motor Exam: strength 5/5 throughout Psych mental status grossly normal Mood & Affect: Negative for depressed or tearful Skin no rashes or lesions noted and no wounds MDM MDM MDM Narrative Medical decision making narrative: I explained to the patient that this could be an infection this could represent local reaction to a subcuticular stitch but it did not appear to be anything that needed to be drained or admitted for. I can place her on Bactrim. Discharge Plan Triage Chief Complaint: Wound Check ED Provider: Davian Farrell Dx/Rx/DC Orders Clinical Impression: Cellulitis Instructions: ED Cellulitis Prescriptions: New sulfamethoxazole-trimethoprim [sulfamethoxazole-trimethoprim] 1 TABLET tablet 1 tab PO BID Qty: 14 RF: 0 No Action calcium carbonate 600 MG tablet 600 mg PO DAILY RF: 0 cholecalciferol (vitamin D3) [Vitamin D3] 1,000 UNIT tablet 1,000 unit PO DAILY RF: 0 celecoxib 200 MG capsule 200 mg PO BID RF: 0 Remicade 100 MG/10 ML recon soln 5 mg IV QMONTH RF: 0 doxycycline monohydrate 100 MG capsule 100 mg PO BID Qty: 14 RF: 0 cyclobenzaprine 10 mg Tablet 10 mg PO TID PRN (Reason: Spasms) RF: 0 omeprazole 20 mg Capsule,Delayed Release(Dr/Ec) 20 mg PO BID RF: 0 albuterol sulfate 90 mcg/actuation Hfa Aerosol Inhaler 2 puff INHALATION Q6H PRN (Reason: Wheezing) RF: 0 ondansetron 4 mg Tablet,Disintegrating 4 mg PO Q8H PRN (Reason: Nausea) RF: 0 etodolac 500 mg Tablet 500 mg PO BID RF: 0 Primary Care Provider: Care Physician,No Primary Referrals: Care Physician,No Primary [Primary Care Provider] -
[2020-10-05 14:24] VITALS: BP 102/64; PULSE 80; RESP 14; O2SAT 97
== END 2020-10-05 14:25 | disposition home or self-care (01) ==
LOC: ED 14:22
PROVIDERS: Emergency Provider Emergency Medicine
DX: L03.311 Cellulitis of abdominal wall (principal); Z86.14 Personal history of Methicillin resistant Staphylococcus aureus infection
CPT/HCPCS: 99282

== ENCOUNTER 2022-03-08 23:20 | Emergency (ER) | payer BC, SELFPAY ==
[2022-03-08 23:21] VITALS: BP 104/85; PULSE 76; RESP 16; TEMP 36.1; O2SAT 98; BMI 30.9
--- NOTE | 2022-03-08 23:43 | ED.VIS.LOWEX ---
HPI History of Present Illness HPI Narrative: Patient presents with pain in her left great toe and left fifth toe that has been constant for the past 2 months. Patient states it became worse today. Patient states her pain is sharp. Patient states it is worse with any pressure or with standing. Patient admits to some paresthesias and weakness in the first and fifth toe of her left foot. Patient denies any trauma or injury. Patient denies any fevers or chills. Patient states she is concerned because she has a history of septic joints and thinks that this may be a septic joint in her foot. Chief Complaint: Lower Extremity Injury Informant: patient Onset/Context/Timing Onset: Month(s) (2) Context: Gradual Onset Timing: Continuous Quality of Pain: Sharp Location: Left first toe and left fifth toe Worsened by: Pressure, standing Relieved by: Nothing Associated Symptoms Associated Symptoms: Positive for Parasthesia and Weakness PFSH PFS Medical History Ankylosing spondylitis Celiac disease Depression Fibromyalgia Lupus MRSA (methicillin resistant Staphylococcus aureus) Ovarian cyst Home Medications calcium carbonate 600 mg calcium (1,500 mg) tablet 600 mg PO DAILY 03/18/15 [History Last Taken Unknown] cholecalciferol (vitamin D3) 25 mcg (1,000 unit) tablet (Vitamin D3) 1,000 unit PO DAILY 03/18/15 [History Last Taken Unknown] albuterol sulfate 90 mcg/actuation aerosol inhaler 2 puff inhalation Q6H PRN Wheezing 10/05/20 [History Last Taken Unknown] cyclobenzaprine 10 mg tablet 10 mg PO TID PRN Spasms 10/05/20 [History Last Taken Unknown] omeprazole 20 mg capsule,delayed release 20 mg PO BID 10/05/20 [History Last Taken Unknown] ondansetron 4 mg disintegrating tablet 4 mg PO Q8H PRN Nausea 10/05/20 [History Last Taken Unknown] cetirizine 10 mg tablet mg 03/08/22 [History Last Taken Unknown] duloxetine 30 mg capsule,delayed release (Cymbalta) 30 mg PO DAILY 03/08/22 [History Last Taken Unknown] secukinumab 150 mg/mL subcutaneous pen injector (Cosentyx Pen) mg subcut QMONTH 03/08/22 [History Last Taken Unknown] Allergy/AdvReac Type Severity Reaction Status Date / Time promethazine [From Phenergan] AdvReac Other Verified 03/08/22 23:21 Surgical History h/o right elbow I&D History of cholecystectomy Social History Smoking Status: Never smoker substance use type: does not use ROS ROS ED Constitutional Constitutional ED: Denies chills or fever(s) Eyes Eyes: Denies blurry vision or change in vision ENT ENT ED: Denies rhinorrhea or sore throat Cardiovascular Cardiovascular: Denies chest pain or palpitations Respiratory/Chest Respiratory/Chest: Denies cough or dyspnea Gastrointestinal Gastrointestinal: Reports nausea and vomiting Genitourinary Genitourinary ED: Denies dysuria or hematuria Musculoskeletal Musculoskeletal: Denies back pain or neck pain Integumentary Denies abscess or rash Neurologic Neurologic: Denies headache(s) or weakness Allergic/Immunologic Allergic/Immunologic ED: Denies mouth swelling or urticaria EXAM Physical Exam Const Vital Signs: 03/08/22 23:21 Temperature 96.9 F L Temperature Source Temporal Pulse Rate 76 Respiratory Rate 16 Blood Pressure 104/85 H Blood Pressure Mean 91 Pulse Ox 98 Oxygen Delivery Method Room Air Positive well nourished and well developed General Appearance ED: well developed and NAD HEENT Reports moist mucous membranes Neck full ROM and supple Extremity Extremity Narrative: There is tenderness over the left great toe and left fifth toe. There is mild erythema. There is no warmth. Range of motion was limited in all motions of the 2 digits because of pain. Sensation was intact to light touch in all digits. Capillary refill was less than 2 seconds in all digits. Pedal pulses are equal bilaterally. There is no tenderness over the medial or lateral malleoli. There is no tenderness over the proximal fibula. Neuro oriented x3, CN's II-XII intact bilaterally, moves all extremities and no sensory deficits noted Sensorium / Orientation: alert Motor Exam: strength 5/5 throughout Psych mental status grossly normal MDM MDM MDM Narrative Medical decision making narrative: Patient was given an injection of Toradol here x-rays of the left foot were obtained. There are 3 views. On my interpretation, there is no acute fracture. There is no dislocation. There is no soft tissue swelling. There is no evidence of osteomyelitis. Radiologist also interpreted the x-rays and agrees. CBC was within normal limits. Basic metabolic profile was within normal limits. Patient is sleeping on reevaluation. Patient was advised of her findings. Patient was instructed to ice and elevate the left foot. Patient was instructed to take Tylenol or ibuprofen as needed for any pain. Patient was given a postop shoe. Patient was instructed to follow-up with her primary care physician in 5 to 7 days. Patient understood and was agreeable with the plan. All questions were answered. Lab Data Attestation: I reviewed the patient's lab results. Labs: Laboratory Results - last 24 hr 03/09/22 03/09/22 01:13 01:13 WBC 8.2 RBC 4.09 L Hgb 11.8 L Hct 35.7 L MCV 87.3 MCH 28.9 MCHC 33.1 RDW Std Deviation 36.6 RDW Coeff of Jimmie 11.6 Plt Count 304 MPV 10.4 Immature Gran % (Auto) 0.400 Neut % (Auto) 66.8 Lymph % (Auto) 21.8 [place] % (Auto) 8.3 Eos % (Auto) 2.0 Baso % (Auto) 0.7 Absolute Neuts (auto) 5.5 Absolute Lymphs (auto) 1.78 Nucleated RBC % 0 Sodium 140 Potassium 3.8 Chloride 110 H Carbon Dioxide 27.0 Anion Gap 3 L BUN 10 Creatinine 0.71 Estim Creat Clear Calc 92.20 Est GFR (MDRD) Af Amer 130 Est GFR (MDRD) Non-Af 107 BUN/Creatinine Ratio 14.1 Glucose 93 Calcium 8.7 Radiography Diagnostic Testing: Clinical Impression(s) from Imaging Studies Foot X-Ray 03/09/22 00:00 IMPRESSION: Negative left foot x-rays. Electronically Signed: Reese Cuevas MD at 0:52 EST , Discharge Plan Triage Chief Complaint: Lower Extremity Injury ED Provider: Brown Felder Dx/Rx/DC Orders Clinical Impression: Pain of left great toe, Obesity (BMI 30-39.9) Instructions: ED Pain, Acute, Uncertain Cause Prescriptions: No Action calcium carbonate 600 MG tablet 600 mg PO DAILY cholecalciferol (vitamin D3) [Vitamin D3] 1,000 UNIT tablet 1,000 unit PO DAILY cyclobenzaprine 10 mg Tablet 10 mg PO TID PRN (Reason: Spasms) omeprazole 20 mg Capsule,Delayed Release(Dr/Ec) 20 mg PO BID albuterol sulfate 90 mcg/actuation Hfa Aerosol Inhaler 2 puff INHALATION Q6H PRN (Reason: Wheezing) ondansetron 4 mg Tablet,Disintegrating 4 mg PO Q8H PRN (Reason: Nausea) cetirizine 10 mg tablet Label Comments: Take 1 tablet by mouth once daily. duloxetine [Cymbalta] 30 mg Capsule,Delayed Release(Dr/Ec) 30 mg PO DAILY Cosentyx Pen 150 mg/mL pen injector SUBCUT QMONTH Primary Care Provider: Jhony Cook Referrals: Jhony Cook MD [Primary Care Provider] - 5-7 Days Disposition Disposition: Home, Self Care
--- NOTE | 2022-03-09 | RAD_ITS ---
EXAM: XR LEFT FOOT COMPLETE, 3 OR MORE VIEWS CLINICAL INDICATION: Injury/Pain TECHNIQUE: Frontal, lateral and oblique views of the left foot. This report was created using [employer] report generation technology. COMPARISON: None. FINDINGS: BONES/JOINTS: Unremarkable. No acute fracture. No subluxation. Normal alignment. Preservation of the joint space. No sclerotic or destructive changes observed. SOFT TISSUES: Unremarkable. No soft tissue swelling or gas. No radiopaque foreign body. RAD/Foot min 3 Views IMPRESSION: Negative left foot x-rays. Electronically Signed: Reese Cuevas MD at 0:52 EST ,
[2022-03-09] MEDS: Ketorolac 30 MG/ML Syringe IV (00:59)
[2022-03-09 01:31] LABS: Anion Gap 3 (5-15); BUN 10 mg/dL (7-18); BUN/Creat Ratio 14.1 RATIO (10-20); Calcium,Total 8.7 mg/dL (8.5-10.1); Chloride 110 mmol/L (98-107); Creatinine, Serum 0.71 mg/dL (0.55-1.02); EST Glomerular Filtration Rate 107 mL/min (>60); Est Glom Filt Rate - Afr Amer 130 mL/min (>60); Glucose 93 mg/dL (74-106); Potassium 3.8 mmol/L (3.5-5.1); Sodium Level 140 mmol/L (136-145)
[2022-03-09 01:32] LABS: Absolute Lymphocyte Count 1.78 X10^3/uL (0.83-4.51); Absolute Neutrophil Count 5.5 X10^3/uL (2.0-7.7); Basophil# 0.06 X10^3/uL; Basophil% 0.7 % (0-1); Eosinophil# 0.16 X10^3/uL; Hematocrit 35.7 % (37-47); Hemoglobin 11.8 g/dL (12.0-15.0); Lymphocyte # 1.78 X10^3/ul (0.83-4.51); Lymphocyte % 21.8 % (19-41); Mean Corp Hgb Conc 33.1 g/dL (32-36); Mean Corpuscular Hgb 28.9 pg (27.0-32.0); Mean Corpuscular Volume 87.3 fL (81-99); Mean Platelet Vol. 10.4 fl (6.2-12.0); Monocyte# 0.68 X10^3/uL; Monocyte% 8.3 % (0-10); NRBC Flagged by Analyzer 0 % (0-5); Neutrophil # 5.46 X10^3/uL (2.7-7.7); Neutrophil % 66.8 % (47-70); Platelet Count 304 K/mm3 (150-450); RBC Distribution Width CV 11.6 % (11.6-14.6); RBC Distribution Width SD 36.6 fl (35.1-43.9); Red Blood Count 4.09 M/mm3 (4.2-5.4); White Blood Count 8.2 K/mm3 (4.4-11.0)
== END 2022-03-09 01:51 | disposition home or self-care (01) ==
PROVIDERS: Emergency Provider Emergency Medicine; PCP Internal Medicine; Visit Provider Emergency Medicine
DX: M79.675 Pain in left toe(s) (principal); E66.9 Obesity, unspecified; Z68.30 Body mass index [BMI] 30.0-30.9, adult
CPT/HCPCS: 73630; 80048; 85025; 96374; 99283; A4216

== ENCOUNTER 2022-08-10 11:45 | Emergency (ER) | payer BC, SELFPAY ==
[2022-08-10 11:46] VITALS: BP 107/73; PULSE 81; RESP 14; TEMP 36.1; O2SAT 99; BMI 29.9
--- NOTE | 2022-08-10 12:00 | EDS_ITS ---
HPI HPI - GI History of Present Illness Chief Complaint: Nausea/Vomiting/Diarrhea Informant: patient Abdominal Pain/Flank Pain Worsened by: Nothing Relieved by: Nothing Nausea/Vomiting/Emesis GI Symptom: Positive for Nausea and Vomiting Onset: Days (3) Quality: Positive for Nonbilious; Negative for Blood streaks, Coffee ground or Hematemesis Diarrhea/Melena/Hematochezia GI Symptom: Positive for Diarrhea; Negative for Melena or Hematochezia Onset: Days (3) Stool Quality: Positive for Watery Associated Symptoms Associated Symptoms: Negative for Dysuria, Frequency or Hematuria LMP: 2 weeks ago Narrative Narrative: Patient presents with nausea, vomiting, and diarrhea for the past 3 days. Patie nt states her diarrhea is watery. Patient denies any melena or hematochezia. Patient states she is unable to keep anything down including water. Patient denies any abdominal pain. Patient states her mother recently tested positive for C. difficile. Patient states she was on antibiotics approximately 2 weeks ago after her foot surgery. Patient denies any fevers but admits to some subjective chills. Patient denies any back pain. [facility] Medical History (Updated 08/10/22 @ 15:[address] Brown Felder, DO) Ankylosing spondylitis Celiac disease Depression Fibromyalgia Lupus MRSA (methicillin resistant Staphylococcus aureus) Ovarian cyst Home Medications calcium carbonate 600 mg calcium (1,500 mg) tablet 600 mg PO DAILY 03/18/15 [History Last Taken Unknown] cholecalciferol (vitamin D3) 25 mcg (1,000 unit) tablet (Vitamin D3) 1,000 unit PO DAILY 03/18/15 [History Last Taken Unknown] albuterol sulfate 90 mcg/actuation aerosol inhaler 2 puff inhalation Q6H PRN Wheezing 10/05/20 [History Last Taken Unknown] cyclobenzaprine 10 mg tablet 10 mg PO TID PRN Spasms 10/05/20 [History Last Taken Unknown] omeprazole 20 mg capsule,delayed release 20 mg PO BID 10/05/20 [History Last Taken Unknown] cetirizine 10 mg tablet mg 03/08/22 [History Last Taken Unknown] duloxetine 30 mg capsule,delayed release (Cymbalta) 30 mg PO DAILY 03/08/22 [History Last Taken Unknown] secukinumab 150 mg/mL subcutaneous pen injector (Cosentyx Pen) mg subcut QMONTH 03/08/22 [History Last Taken Unknown] ondansetron 4 mg disintegrating tablet 4 mg PO Q8H PRN Nausea #10 tabs 08/10/22 [Rx Last Taken Unknown] Allergy/AdvReac Type Severity Reaction Status Date / Time promethazine [From Phenergan] AdvReac Other Verified 08/10/22 11:47 Surgical History (Updated 08/10/22 @ 12:[address] Brown Felder, ) h/o right elbow I&D History of cholecystectomy Hx of foot surgery Social History Smoking Status: Never smoker substance use type: does not use ROS ROS ED Constitutional Constitutional ED: Denies chills or fever(s) Eyes Eyes: Denies blurry vision or change in vision ENT ENT ED: Denies rhinorrhea or sore throat Cardiovascular Cardiovascular: Denies chest pain or palpitations Respiratory/Chest Respiratory/Chest: Denies cough or dyspnea Gastrointestinal Gastrointestinal: Reports diarrhea, nausea and vomiting; Denies abdominal pain or melena Genitourinary Genitourinary ED: Denies dysuria or hematuria Musculoskeletal Musculoskeletal: Denies back pain or neck pain Integumentary Denies abscess or rash Neurologic Neurologic: Denies headache(s) or weakness Allergic/Immunologic Allergic/Immunologic ED: Denies mouth swelling or urticaria EXAM Physical Exam Const Vital Signs: 08/10/22 11:46 Temperature 97.0 F L Temperature Source Temporal Pulse Rate 81 Respiratory Rate 14 Blood Pressure 107/73 Blood Pressure Mean 84 Pulse Ox 99 Oxygen Delivery Method Room Air Positive well nourished and well developed General Appearance ED: well developed HEENT Reports moist mucous membranes Neck supple and no JVD Resp normal respiratory effort and clear to auscultation bilaterally Cardio regular rate, regular rhythm and no murmurs GI normal to inspection, nondistended, normoactive bowel sounds and non-tender Palpation: soft Extremity normal to inspection General Extremety ED: Negative for edema or tenderness General Extremity: Negative for edema Neuro oriented x3, CN's II-XII intact bilaterally and no sensory deficits noted Sensorium / Orientation: alert Motor Exam: strength 5/5 throughout Psych mental status grossly normal Skin no rashes or lesions noted MDM MDM MDM Narrative Medical decision making narrative: Diagnosis includes viral gastroenteritis, C. difficile colitis, ovarian cyst, urinary tract infection, and dehydration. CBC will be obtained to assess for leukocytosis and anemia. Basic metabolic profile will be obtained to assess for electrolyte abnormality and renal function. Urinalysis will be obtained to assess for urinary tract infection. Stool will be obtained for C. difficile to assess for C. difficile infection. History & Record Review Discussion w/independent historian: Patient Lab Data Attestation: I reviewed the patient's lab results. Lab results narrative: CBC was reviewed and was within normal limits. Basic metabolic profile was reviewed and was within normal limits. Serum hCG was reviewed and was negative. Urinalysis was reviewed. There is no evidence of urinary tract infection or hematuria. Labs: Laboratory Results - last 24 hr 08/10/22 08/10/22 08/10/22 12:20 12:20 12:20 WBC 6.8 RBC 4.67 Hgb 13.6 Hct 40.4 MCV 86.5 MCH 29.1 MCHC 33.7 RDW Std Deviation 37.2 RDW Coeff of Jimmie 11.9 Plt Count 280 MPV 10.1 Immature Gran % (Auto) 0.300 Neut % (Auto) 72.6 H Lymph % (Auto) 19.2 [place] % (Auto) 6.6 Eos % (Auto) 0.7 Baso % (Auto) 0.6 Absolute Neuts (auto) 4.9 Absolute Lymphs (auto) 1.30 Nucleated RBC % 0 Sodium 140 Potassium 3.7 Chloride 108 H Carbon Dioxide 26.0 Anion Gap 6 BUN 8 Creatinine 0.57 Estim Creat Clear Calc 119.33 Est GFR (MDRD) Af Amer 165 Est GFR (MDRD) Non-Af 136 BUN/Creatinine Ratio 14.0 Glucose 102 Calcium 9.1 Serum , Qual NEGATIVE Urine Color Urine Clarity Urine pH Ur Specific [place] Urine Protein Urine Glucose (UA) Urine Ketones Urine Occult Blood Urine Nitrite Urine Bilirubin Urine Urobilinogen Ur Leukocyte Esterase Urine RBC Urine WBC Ur Squamous Epith Cells Urine Bacteria Urine Mucus 08/10/22 13:33 WBC RBC Hgb Hct MCV MCH MCHC RDW Std Deviation RDW Coeff of Jimmie Plt Count MPV Immature Gran % (Auto) Neut % (Auto) Lymph % (Auto) [place] % (Auto) Eos % (Auto) Baso % (Auto) Absolute Neuts (auto) Absolute Lymphs (auto) Nucleated RBC % Sodium Potassium Chloride Carbon Dioxide Anion Gap BUN Creatinine Estim Creat Clear Calc Est GFR (MDRD) Af Amer Est GFR (MDRD) Non-Af BUN/Creatinine Ratio Glucose Calcium Serum , Qual Urine Color Yellow Urine Clarity Clear Urine pH 6.5 Ur Specific [place] 1.010 Urine Protein Negative Urine Glucose (UA) Normal Urine Ketones 5 H Urine Occult Blood Negative Urine Nitrite Negative Urine Bilirubin Negative Urine Urobilinogen Normal Ur Leukocyte Esterase Negative Urine RBC 0 SEEN Urine WBC 0-5 SEEN Ur Squamous Epith Cells 0-5 SEEN Urine Bacteria 0 SEEN Urine Mucus 0 SEEN Treatment and Re-Evaluation :: Patient was given IV fluids and Zofran here. Patient is still having some nausea. Patient was given a repeat dose of Zofran here. Patient was given a prescription for Zofran. Patient had no episodes of diarrhea here in the emergency department. Patient was advised that this is unlikely to be C. difficile colitis since she has not had any diarrhea episodes here in the emergency department. Patient was instructed to follow-up with her primary care physician in 5 to 7 days. Patient was instructed return if worse in any way. Patient understood and was agreeable with the plan. All questions were answered. Discharge Plan Triage Chief Complaint: Nausea/Vomiting/Diarrhea ED Provider: Brown Felder Dx/Rx/DC Orders Clinical Impression: Nausea, vomiting, and diarrhea Instructions: ED Vomiting and Diarrhea ... Prescriptions: Continued ondansetron 4 mg Tablet,Disintegrating 4 mg PO Q8H PRN (Reason: Nausea) Qty: 10 0RF No Action calcium carbonate 600 MG tablet 600 mg PO DAILY cholecalciferol (vitamin D3) [Vitamin D3] 1,000 UNIT tablet 1,000 unit PO DAILY cyclobenzaprine 10 mg Tablet 10 mg PO TID PRN (Reason: Spasms) omeprazole 20 mg Capsule,Delayed Release(Dr/Ec) 20 mg PO BID albuterol sulfate 90 mcg/actuation Hfa Aerosol Inhaler 2 puff INHALATION Q6H PRN (Reason: Wheezing) cetirizine 10 mg tablet Label Comments: Take 1 tablet by mouth once daily. duloxetine [Cymbalta] 30 mg Capsule,Delayed Release(Dr/Ec) 30 mg PO DAILY Cosentyx Pen 150 mg/mL pen injector SUBCUT QMONTH Primary Care Provider: Jhony Cook Referrals: Jhony Cook MD [Primary Care Provider] - 5-7 Days Disposition Disposition: Home, Self Care
[2022-08-10] MEDS: Ondansetron 4 MG/2 ML Vial IV (12:33)
[2022-08-10] MEDS: 0.9% Normal Saline 1,000 ML 1000 ML IV (12:33)
[2022-08-10 12:34] LABS: Absolute Neutrophil Count 4.9 X10^3/uL (2.0-7.7); Basophil# 0.04 X10^3/uL; Basophil% 0.6 % (0-1); Eosinophil# 0.05 X10^3/uL; Eosinophils% 0.7 % (0-5); Hematocrit 40.4 % (37-47); Hemoglobin 13.6 g/dL (12.0-15.0); Lymphocyte % 19.2 % (19-41); Mean Corp Hgb Conc 33.7 g/dL (32-36); Mean Corpuscular Hgb 29.1 pg (27.0-32.0); Mean Corpuscular Volume 86.5 fL (81-99); Mean Platelet Vol. 10.1 fl (6.2-12.0); Monocyte# 0.45 X10^3/uL; Monocyte% 6.6 % (0-10); NRBC Flagged by Analyzer 0 % (0-5); Neutrophil # 4.91 X10^3/uL (2.7-7.7); Neutrophil % 72.6 % (47-70); Platelet Count 280 K/mm3 (150-450); RBC Distribution Width CV 11.9 % (11.6-14.6); RBC Distribution Width SD 37.2 fl (35.1-43.9); Red Blood Count 4.67 M/mm3 (4.2-5.4); White Blood Count 6.8 K/mm3 (4.4-11.0)
[2022-08-10 12:49] LABS: Anion Gap 6 (5-15); BUN 8 mg/dL (7-18); Calcium,Total 9.1 mg/dL (8.5-10.1); Chloride 108 mmol/L (98-107); Creatinine, Serum 0.57 mg/dL (0.55-1.02); EST Glomerular Filtration Rate 136 mL/min (>60); Est Glom Filt Rate - Afr Amer 165 mL/min (>60); Estimated Creatinine Clearance 119.33 ml/min; Glucose 102 mg/dL (74-106); Potassium 3.7 mmol/L (3.5-5.1); Sodium Level 140 mmol/L (136-145)
[2022-08-10 13:03] LABS: Internal QC Validated? YES +Cl - CLEAR BKGD; Pregnancy, Serum, hCG Quali. NEGATIVE Negative
[2022-08-10 13:38] LABS: Bacteria 0 SEEN /hpf (None Seen); Mucous, Urine 0 SEEN /hpf (<or=2+); Red Blood Cells-Urine 0 SEEN /hpf (0-5)
[2022-08-10 13:43] LABS: Color, Urine Yellow (Yellow); Glucose, Dipstick Normal (Normal); Ketone-Dipstick 5 mg/dl (Negative); Leukocyte Esterase-Dipstick Negative /ul (Negative); Nitrite-Dipstick Negative (Negative); Occult Blood-Urine Negative /ul (Negative); Protein-Dipstick Negative (Negative); Urine Bilirubin Dipstick Negative (Negative); Urine Clarity Clear (Clear); Urine Urobilinogen Normal (Normal); Urine pH 6.5 (5.0 - 8.0)
[2022-08-10 13:45] VITALS: RESP 17
[2022-08-10 13:53] LABS: Squamous Epithelial Cells - UA 0-5 SEEN /hpf (5-10); White Blood Cells 0-5 SEEN /hpf (0-5)
== END 2022-08-10 15:44 | disposition home or self-care (01) ==
PROVIDERS: Emergency Provider Emergency Medicine; PCP Internal Medicine; Visit Provider Emergency Medicine
DX: R11.2 Nausea with vomiting, unspecified (principal); R19.7 Diarrhea, unspecified
CPT/HCPCS: 80048; 81001; 84703; 85025; 96361; 96374; 99283; J7030; J2405

== ENCOUNTER 2022-09-27 00:30 | Emergency (ER) | payer BC, SELFPAY ==
[2022-09-27 00:33] VITALS: BP 112/80; PULSE 66; RESP 18; TEMP 36.6; O2SAT 99; BMI 29.4
[2022-09-27 02:03] LABS: Absolute Lymphocyte Count 1.81 X10^3/uL (0.83-4.51); Absolute Neutrophil Count 3.8 X10^3/uL (2.0-7.7); Basophil# 0.06 X10^3/uL; Basophil% 0.9 % (0-1); Eosinophil# 0.12 X10^3/uL; Eosinophils% 1.9 % (0-5); Hematocrit 38.8 % (37-47); Hemoglobin 12.9 g/dL (12.0-15.0); Lymphocyte # 1.81 X10^3/ul (0.83-4.51); Lymphocyte % 28.1 % (19-41); Mean Corp Hgb Conc 33.2 g/dL (32-36); Mean Corpuscular Hgb 29.1 pg (27.0-32.0); Mean Corpuscular Volume 87.6 fL (81-99); Mean Platelet Vol. 10.9 fl (6.2-12.0); Monocyte# 0.64 X10^3/uL; Monocyte% 9.9 % (0-10); NRBC Flagged by Analyzer 0 % (0-5); Neutrophil % 58.9 % (47-70); Platelet Count 314 K/mm3 (150-450); RBC Distribution Width CV 11.7 % (11.6-14.6); RBC Distribution Width SD 37.8 fl (35.1-43.9); Red Blood Count 4.43 M/mm3 (4.2-5.4); White Blood Count 6.5 K/mm3 (4.4-11.0)
[2022-09-27] MEDS: 0.9% Normal Saline 1,000 ML 999 ML IV (02:11)
[2022-09-27] MEDS: Ondansetron 4 MG/2 ML Vial IV (02:12)
[2022-09-27] MEDS: Ketorolac 30 MG/ML Syringe IV (02:12)
[2022-09-27 02:17] LABS: Mucous, Urine 0 SEEN /hpf (<or=2+)
[2022-09-27 02:18] LABS: Color, Urine Yellow (Yellow); Glucose, Dipstick Normal (Normal); Ketone-Dipstick 50 mg/dl (Negative); Leukocyte Esterase-Dipstick 500 /ul (Negative); Nitrite-Dipstick Negative (Negative); Occult Blood-Urine 250 /ul (Negative); Protein-Dipstick 30 mg/dl (Negative); Specific Gravity, Urine 1.025 (1.002-1.030); Urine Clarity Sl. Cloudy (Clear); Urine Urobilinogen 8 mg/dl (Normal); Urine pH 6.5 (5.0 - 8.0)
[2022-09-27 02:19] LABS: AST(SGOT) 13 U/L (15-37); Alanine Aminotransfer ALT/SGPT 15 U/L (13-56); Albumin, Serum 3.6 g/dL (3.2-5.0); Alkaline Phosphatase 60 U/L (45-117); Anion Gap 5 (5-15); BUN 15 mg/dL (7-18); BUN/Creat Ratio 23.4 RATIO (10-20); Bilirubin, Direct 0.19 mg/dL (0.00-0.30); Calcium,Total 8.7 mg/dL (8.5-10.1); Chloride 108 mmol/L (98-107); Creatinine, Serum 0.64 mg/dL (0.55-1.02); EST Glomerular Filtration Rate 120 mL/min (>60); Est Glom Filt Rate - Afr Amer 145 mL/min (>60); Estimated Creatinine Clearance 106.28 ml/min; Glucose 86 mg/dL (74-106); Lipase 51 U/L (13-75); Magnesium 2.2 mg/dL (1.6-2.6); Potassium 3.4 mmol/L (3.5-5.1); Protein, Total 7.6 g/dL (6.4-8.2); Sodium Level 139 mmol/L (136-145)
[2022-09-27 02:21] LABS: Internal QC Validated? YES +Cl - CLEAR BKGD; Pregnancy, Urine Negative Negative; Urine Bilirubin Dipstick 1 mg/dL (Negative)
[2022-09-27 02:23] LABS: Bacteria 3+ /hpf (None Seen); Red Blood Cells-Urine 10-25 SEEN /hpf (0-5); Squamous Epithelial Cells - UA 5-10 SEEN /hpf (5-10); White Blood Cells 50-100 SEEN /hpf (0-5)
[2022-09-27 02:49] VITALS: BP 106/59; PULSE 87; RESP 16; O2SAT 99
--- NOTE | 2022-09-27 03:07 | EDS_ITS ---
HPI History of Present Illness Chief Complaint: Nausea/Vomiting Informant: patient Narrative Narrative: Patient is a 27-year-old female with past medical history of ovarian cyst. She states she awoke Sunday night/Sunday morning with generalized abdominal discom fort and bouts of nausea vomiting and diarrhea. She states that she has had persistent symptoms for the last 2 days however the vomiting has decreased to where it only occurs if she ingests food or fluid and the diarrhea has resolved. She denies any recent travel outside the country or antibiotic use or exposure to livestock. She states that there is been no known sick contact. She denies any history of intestinal disorder such as ulcerative colitis or Crohn's disease. However because of her persistent symptoms she is concerned for dehydration and/or infectious process and therefore comes in for evaluation [facility] Medical History (Updated 09/27/22 @ 03:[address] Reese Brown, ) Ankylosing spondylitis Celiac disease Depression Fibromyalgia Lupus MRSA (methicillin resistant Staphylococcus aureus) Ovarian cyst Home Medications calcium carbonate 600 mg calcium (1,500 mg) tablet 600 mg PO DAILY 03/18/15 [History Last Taken Unknown] cholecalciferol (vitamin D3) 25 mcg (1,000 unit) tablet (Vitamin D3) 1,000 unit PO DAILY 03/18/15 [History Last Taken Unknown] albuterol sulfate 90 mcg/actuation aerosol inhaler 2 puff inhalation Q6H PRN Wheezing 10/05/20 [History Last Taken Unknown] cyclobenzaprine 10 mg tablet 10 mg PO TID PRN Spasms 10/05/20 [History Last Taken Unknown] omeprazole 20 mg capsule,delayed release 20 mg PO BID 10/05/20 [History Last Taken Unknown] cetirizine 10 mg tablet mg 03/08/22 [History Last Taken Unknown] duloxetine 30 mg capsule,delayed release (Cymbalta) 30 mg PO DAILY 03/08/22 [History Last Taken Unknown] secukinumab 150 mg/mL subcutaneous pen injector (Cosentyx Pen) 300 mg subcut QMONTH 03/08/22 [History Last Taken Unknown] ondansetron 4 mg disintegrating tablet 4 mg PO Q8H PRN Nausea #10 tabs 08/10/22 [Rx Last Taken Unknown] hydrocodone-acetaminophen 5-325mg 5mg-325mg 1 tab PO Q6H PRN PRN Pain 3 days #12 TABLETS 09/27/22 [Rx Last Taken Unknown] ondansetron 4 mg disintegrating tablet 4 mg PO TID PRN nausea and vomiting #21 tabs 09/27/22 [Rx Last Taken Unknown] Allergy/AdvReac Type Severity Reaction Status Date / Time promethazine [From Phenergan] AdvReac Other Verified 08/10/22 11:47 Surgical History h/o right elbow I&D History of cholecystectomy Hx of foot surgery Social History Smoking Status: Never smoker substance use type: does not use ROS ROS ED Constitutional Constitutional ED: Denies chills or fever(s) ENT ENT ED: Denies sore throat Cardiovascular Cardiovascular: Denies chest pain Respiratory/Chest Respiratory/Chest: Denies cough or dyspnea Gastrointestinal Gastrointestinal: Reports abdominal pain, diarrhea, nausea and vomiting Genitourinary Genitourinary ED: Denies dysuria Musculoskeletal Musculoskeletal: Denies back pain or myalgias Integumentary Denies rash Neurologic Neurologic: Denies headache(s) Hematologic/Lymphatic Hematologic/Lymphatic: Denies easy bleeding or easy bruising EXAM Physical Exam Const Vital Signs: 09/27/22 00:33 09/27/22 02:49 Temperature 97.8 F Temperature Source Temporal Pulse Rate 66 87 Respiratory Rate 18 16 Blood Pressure 112/80 106/59 L Blood Pressure Mean 90 74 Pulse Ox 99 99 Positive well nourished and well developed General Appearance ED: well developed HEENT Reports moist mucous membranes HEENT Narrative: No signs of infection noted in the posterior pharynx Eyes PERRL and EOMs intact bilaterally General Eye ED: Negative for scleral icterus Neck supple Resp normal respiratory effort and clear to auscultation bilaterally Cardio regular rate and regular rhythm Rate: other Other Details: Radial pulses are plus 2 out of 4 bilaterally are equal and symmetric GI non-distended GI Narrative: Abdomen is soft and nondistended with hyperactive bowel sounds. There is pain with palpation in the right mid to upper abdominal region without voluntary guarding or rigidity. Negative heel strike psoas and obturator signs. Auscultation: hyperactive bowel sounds Palpation: soft Back/Spine no CVA tenderness Extremity normal to inspection Extremity Narrative: No asymmetric edema no pitting edema negative Homans' sign bilaterally Neuro oriented x3 and CN's II-XII intact bilaterally Sensorium / Orientation: alert Psych mental status grossly normal Skin no rashes or lesions noted and skin turgor normal General Skin Exam: Negative for jaundice MDM MDM MDM Narrative Medical decision making narrative: Patient presented to the ER with stable vitals and a soft nonsurgical abdomen so I felt no need for emergent imaging study. Differential diagnosis includes viral gastroenteritis versus gastritis versus ulcer versus biliary colic or acute pancreatitis. Secondary to this a basic blood work was obtained. Labs revealed no clinically significant findings. The urine did show white blood cells with +3 bacteria but there is also contamination with 5-10 skin cells. Patient does not have urinary frequency urgency or dysuria and therefore I do not feel there is need to start her antibiotics based on her constellation of symptoms. The urine be sent for culture and she was informed she will be notified if positive. At this time patient has a soft nontender abdomen with negative laboratory studies. As she denies any vaginal discharge or concern for STD I do not believe that this is an atypical presentation for STD such as Ronny- Corky Aleksandar syndrome. With her vomiting nausea and diarrhea this is most likely viral gastroenteritis and as she has been rehydrated and placed on oral antinausea vomiting medication for home she is otherwise safe for discharge and can return for potential CT scan if symptoms fail to improve or worsen History & Record Review Discussion w/independent historian: Patient Lab Data Labs: Laboratory Results - last 24 hr 09/27/22 09/27/22 01:50 02:10 WBC 6.5 RBC 4.43 Hgb 12.9 Hct 38.8 MCV 87.6 MCH 29.1 MCHC 33.2 RDW Std Deviation 37.8 RDW Coeff of Jimmie 11.7 Plt Count 314 MPV 10.9 Immature Gran % (Auto) 0.300 Neut % (Auto) 58.9 Lymph % (Auto) 28.1 [place] % (Auto) 9.9 Eos % (Auto) 1.9 Baso % (Auto) 0.9 Absolute Neuts (auto) 3.8 Absolute Lymphs (auto) 1.81 Nucleated RBC % 0 Sodium 139 Potassium 3.4 L Chloride 108 H Carbon Dioxide 26.0 Anion Gap 5 BUN 15 Creatinine 0.64 Estim Creat Clear Calc 106.28 Est GFR (MDRD) Af Amer 145 Est GFR (MDRD) Non-Af 120 BUN/Creatinine Ratio 23.4 H Glucose 86 Calcium 8.7 Magnesium 2.2 Total Bilirubin 0.50 Direct Bilirubin 0.19 AST 13 L ALT 15 Alkaline Phosphatase 60 Total Protein 7.6 Albumin 3.6 Globulin 4.0 Lipase 51 Urine Color Yellow Urine Clarity Sl. Cloudy Urine pH 6.5 Ur Specific [place] 1.025 Urine Protein 30 H Urine Glucose (UA) Normal Urine Ketones 50 H Urine Occult Blood 250 H Urine Nitrite Negative Urine Bilirubin 1 H Urine Urobilinogen 8 H Ur Leukocyte Esterase 500 H Urine RBC 10-25 SEEN Urine WBC 50-100 SEEN Ur Squamous Epith Cells 5-10 SEEN Urine Bacteria 3+ Urine Mucus 0 SEEN Urine Test Negative Discharge Plan Triage Chief Complaint: Nausea/Vomiting ED Provider: Reese Brown Dx/Rx/DC Orders Clinical Impression: Nausea vomiting and diarrhea, Nonspecific abdominal pain Instructions: Abdominal Pain, ED Gastroenteritis, Viral (Adult) Prescriptions: New hydrocodone-acetaminophen 5-325 mg tablet 1 tab PO Q6H PRN PRN (Reason: Pain) 3 Days Qty: 12 0RF ondansetron 4 mg tablet,disintegrating 4 mg PO TID PRN (Reason: nausea and vomiting) Qty: 21 0RF No Action calcium carbonate 600 MG tablet 600 mg PO DAILY Hold Instructions: Order Completed cholecalciferol (vitamin D3) [Vitamin D3] 1,000 UNIT tablet 1,000 unit PO DAILY Hold Instructions: Order Completed cyclobenzaprine 10 mg Tablet 10 mg PO TID PRN (Reason: Spasms) Hold Instructions: Order Completed omeprazole 20 mg Capsule,Delayed Release(Dr/Ec) 20 mg PO BID albuterol sulfate 90 mcg/actuation Hfa Aerosol Inhaler 2 puff INHALATION Q6H PRN (Reason: Wheezing) Hold Instructions: Order Completed cetirizine 10 mg tablet Hold Instructions: Order Completed Patient Comments: Take 1 tablet by mouth once daily. duloxetine [Cymbalta] 30 mg Capsule,Delayed Release(Dr/Ec) 30 mg PO DAILY Hold Instructions: Order Completed Cosentyx Pen 150 mg/mL pen injector 300 mg SUBCUT QMONTH ondansetron 4 mg Tablet,Disintegrating 4 mg PO Q8H PRN (Reason: Nausea) Qty: 10 0RF Hold Instructions: Order Completed Primary Care Provider: Jhony Cook Referrals: Jhony Cook MD [Primary Care Provider] - Activity Restrictions/Additional Instructions: Your history and exam indicate that you have a viral stomach infection which will last on average 3 days but can go as long as 7-10 days. Take your medication as directed to help control symptoms and if you develop a fever over 100.4 or have no improvement or any further concerns please return for repeat evaluation Disposition Disposition: Home, Self Care Discharge Date/Time: 09/27/22 03:17
== END 2022-09-27 03:17 | disposition home or self-care (01) ==
PROVIDERS: Emergency Provider Emergency Medicine; PCP Internal Medicine; Visit Provider Emergency Medicine
DX: R11.2 Nausea with vomiting, unspecified (principal); R10.11 Right upper quadrant pain; R19.7 Diarrhea, unspecified; Z90.49 Acquired absence of other specified parts of digestive tract
CPT/HCPCS: 80048; 80076; 81001; 81025; 83690; 83735; 85025; 87086; 87088; 96361; 96374; 96375; 99282; J7030; A4216; J2405

== ENCOUNTER 2023-06-25 02:12 | Emergency (ER) | payer BC, SELFPAY ==
[2023-06-25 02:14] VITALS: BP 103/73; PULSE 70; RESP 16; TEMP 36.7; O2SAT 98; BMI 26.0
--- NOTE | 2023-06-25 02:47 | EX.ED.DYSGE1 ---
HPI History of Present Illness Chief Complaint: Nausea/Vomiting Informant: patient Narrative Narrative: 28-year-old female states she has been having a migraine for the past 4 days. She has a history of those and this 1 does not feel any different, she has been vomiting off and on, but tonight at work she states she started vomiting and is unable to keep any liquids down which is the primary reason she came to the ER. She also states that she is , but she does not know how far along she is. She states that she bled as if she had a menstrual cycle 2 different times in April, and when asked about the first day of the last time she bled she tells me she has no idea. G1, P0, positive home test no care at this point but she is taking vitamins and she is off all other medications. PFSH PFSH Medical History Anemia Ankylosing spondylitis Anxiety Arthritis Celiac disease Depression Emotional problems Fibromyalgia Gastrointestinal problem Lupus MRSA (methicillin resistant Staphylococcus aureus) Ovarian cyst UTI (urinary tract infection) Home Medications docosahexaenoic acid PO 06/25/23 [History Last Taken Unknown] ondansetron 8 mg disintegrating tablet 8 mg PO Q8H PRN nausea and vomiting #20 tabs 06/25/23 [Rx Last Taken Unknown] Allergy/AdvReac Type Severity Reaction Status Date / Time promethazine [From Phenergan] AdvReac Other Verified 06/25/23 02:14 Family History (Updated 06/11/23 @ 08:32 by Марина Corona) Other Anxiety Asthma CVA (cerebral vascular accident) Cancer Colon cancer Depression Diabetes H/O psychiatric care Mental disorder Suicide attempt Surgical History h/o right elbow I&D History of cholecystectomy Hx of foot surgery Social History Smoking Status: Former smoker alcohol intake: current details: occasional 1-3x month substance use type: does not use what type of physical activity do you participate in: walking ROS ROS ED Constitutional Constitutional ED: Denies chills or fever(s) Eyes Eyes: Denies blurry vision or diplopia ENT ENT ED: Denies ear pain or sore throat Cardiovascular Cardiovascular: Denies chest pain or palpitations Respiratory/Chest Respiratory/Chest: Denies cough or dyspnea Gastrointestinal Gastrointestinal: Reports nausea and vomiting; Denies abdominal pain or diarrhea Genitourinary Genitourinary ED: Reports other Details: Some brown discharge but denies vaginal bleeding ; Denies dysuria or urinary frequency Musculoskeletal Musculoskeletal: Denies back pain or myalgias Integumentary Denies abscess or rash Neurologic Neurologic: Reports headache(s); Denies paresthesias or weakness EXAM Physical Exam Const Vital Signs: 06/25/23 02:14 Temperature 98.1 F Temperature Source Temporal Pulse Rate 70 Respiratory Rate 16 Blood Pressure 103/73 Blood Pressure Mean 83 Pulse Ox 98 Oxygen Delivery Method Room Air Positive well nourished and well developed General Appearance ED: well developed and NAD HEENT Reports normocephalic and moist mucous membranes atraumatic Eyes PERRL, EOMs intact bilaterally and conjunctivae normal Eyes Narrative: Mild photophobia Neck no lymphadenopathy, supple and no meningeal signs Resp normal respiratory effort and clear to auscultation bilaterally GI non-tender and non-distended Auscultation: normoactive bowel sounds Palpation: soft Back/Spine no CVA tenderness Extremity normal to inspection and full ROM Neuro oriented x3 and CN's II-XII intact bilaterally Sensorium / Orientation: awake and alert Speech: speech normal Gait (Neuro): normal gait Motor Exam: strength 5/5 throughout Psych Mood & Affect: anxious Skin Lesions: no lesions Rashes: no rashes MDM MDM MDM Narrative Medical decision making narrative: Patient really felt like she was going to vomit so she was given an oral disintegrating Zofran tablet while nurses later placed an IV and gave her Reglan for her migraine/nausea as well as a liter of IV fluids. Her nausea was significantly better she was able to tolerate oral fluids, her vital signs normal. Abdomen is benign, she is seen she has had some brown discharge but not necessarily any bleeding. She has had no pain. I did a bedside ultrasound to try to give us more information about her and did a quantitative hCG. It came back very high 48,000, the bedside ultrasound shows good double decidual sign and there is certainly a fluid-filled space within the uterus, but I see a very small area that may be a pole, but it is ill-defined on our screening ultrasound machine, and I am not able to detect heartbeat. Viability of this is undetermined but I do not have a high degree of suspicion for an ectopic at this time and therefore do not think we need to call ultrasound in given that the patient is here during hogshead packer and they are not available in the hospital. I do recommend close outpatient follow-up. Given OB to follow-up with and we discussed reasons to return especially pain or bleeding. We also sent for her blood type since we do not have record of it. Patient states she is seeing someone at [facility] in 3 weeks. She also states that she had her quantitative hCG checked some day this past week and it was 16,000, therefore this is consistent with a live intrauterine at this point. Lab Data Attestation: I reviewed the patient's lab results. Labs: Laboratory Results - last 24 hr 06/25/23 02:26 HCG, Quant [id number] H Discharge Plan Triage Chief Complaint: Nausea/Vomiting ED Provider: Jamar Rodriguez Dx/Rx/DC Orders Clinical Impression: Early stage of , Headache, migraine, Vomiting Instructions: 1st Trimester, ED, Migraine (Classical) Prescriptions: New ondansetron 8 mg tablet,disintegrating 8 mg PO Q8H PRN (Reason: nausea and vomiting) Qty: 20 0RF No Action docosahexaenoic acid [ DHA] PO Stand Alone Forms: ED Work / School Excuse Primary Care Provider: Jhony Cook Referrals: Edelmira Carter MD [Med Staff - Active Staff] - (call for OB appt) Jhony Cook MD [Primary Care Provider] - Disposition Disposition: Home, Self Care
[2023-06-25] MEDS: Ondansetron ODT 4 MG Tablet 8 MG PO (02:57)
[2023-06-25] MEDS: Metoclopramide 10 MG/2 ML Vial 5 MG IV (02:57)
[2023-06-25] MEDS: 0.9% Normal Saline (1000mL) 1,000 ML 999 ML IV (02:57)
[2023-06-25 03:51] LABS: hCG Titer Quant., Serum 48736 mIU/mL (1-3)
[2023-06-25 04:54] VITALS: BP 102/60; PULSE 79; RESP 18; TEMP 36.6; O2SAT 98
== END 2023-06-25 04:56 | disposition home or self-care (01) ==
PROVIDERS: Emergency Provider Emergency Medicine; PCP Internal Medicine; Visit Provider Emergency Medicine
DX: O99.891 Other specified diseases and conditions complicating pregnancy (principal); G43.909 Migraine, unspecified, not intractable, without status migrainosus; Z87.891 Personal history of nicotine dependence; Z3A.00 Weeks of gestation of pregnancy not specified
CPT/HCPCS: 84702; 86900; 86901; 96361; 96374; 99284; J7030; A4216

== ENCOUNTER 2023-09-24 01:17 | Emergency (ER) | payer BC, SELFPAY ==
[2023-09-24 01:19] VITALS: BP 102/65; PULSE 92; RESP 18; TEMP 36.6; O2SAT 97; BMI 26.0
--- NOTE | 2023-09-24 01:42 | EX.ED.DYSGE1 ---
HPI History of Present Illness Chief Complaint: Back Informant: patient Narrative Narrative: Patient is a G1, P0 female who is approximately 19-1/2 weeks . She also has past medical history of anxiety and ankylosing spondylitis and fibromyalgia. She states that she has chronic back issues secondary to this and is on Flexeril at home. She reports that she recently also received a steroid injection secondary to her back pain. She denies any recent trauma and she states that there has been no loss of bowel or bladder control and she denies any IV drug use. She reports that she was having difficulty doing her job at work this evening which includes walking and lifting and was advised to come to the hospital for evaluation. Patient states has been no vaginal bleeding or discharge and states she feels like her is progressing appropriately [facility] Medical History Anxiety Gastrointestinal problem Emotional problems UTI (urinary tract infection) Arthritis Anemia Fibromyalgia Lupus Celiac disease Ankylosing spondylitis Depression Ovarian cyst MRSA (methicillin resistant Staphylococcus aureus) Home Medications ?Medication ?Instructions ?Recorded ?Last Taken ?Type docosahexaenoic acid PO 06/25/23 Unknown History ondansetron 8 mg disintegrating 8 mg PO Q8H PRN nausea and 06/25/23 Unknown Rx tablet vomiting #20 tabs methocarbamol 500 mg tablet 1,000 mg (2 x 500 mg) PO 4X/DAY 09/24/23 Unknown Rx PRN Muscle pain/spasm #56 tabs oxycodone 5 mg capsule 5 mg PO Q6H PRN pain 3 days #12 09/24/23 Unknown Rx caps Allergy/AdvReac Type Severity Reaction Status Date / Time promethazine (From Phenergan) AdvReac Other Verified 06/25/23 02:14 Family History (Updated 06/11/23 @ 08:32 by Марина Corona) Other Anxiety Asthma CVA (cerebral vascular accident) Cancer Colon cancer Depression Diabetes H/O psychiatric care Mental disorder Suicide attempt Surgical History Hx of foot surgery History of cholecystectomy h/o right elbow I&D Social History Smoking Status: Former smoker alcohol intake: current details: occasional 1-3x month substance use type: does not use what type of physical activity do you participate in: walking ROS ROS ED Constitutional Constitutional ED: Denies chills or fever(s) ENT ENT ED: Denies sore throat Cardiovascular Cardiovascular: Denies chest pain Respiratory/Chest Respiratory/Chest: Denies cough or dyspnea Gastrointestinal Gastrointestinal: Denies abdominal pain, diarrhea, nausea or vomiting Genitourinary Genitourinary ED: Denies dysuria or hematuria Musculoskeletal Musculoskeletal: Reports back pain Integumentary Denies rash Neurologic Neurologic: Denies headache(s), paresthesias or weakness Psychiatric Psychiatric: Reports anxiety Hematologic/Lymphatic Hematologic/Lymphatic: Denies easy bleeding or easy bruising EXAM Physical Exam Const Vital Signs: 09/24/23 01:19 09/24/23 01:56 Temperature 97.9 F 97.9 F Temperature Source Oral Pulse Rate 92 89 Respiratory Rate 18 18 Blood Pressure 102/65 100/60 Blood Pressure Mean 77 73 Pulse Ox 97 97 Oxygen Delivery Method Room Air Positive well nourished and well developed General Appearance ED: well developed; Negative for pallor HEENT HEENT Narrative: Normocephalic atraumatic Eyes PERRL and EOMs intact bilaterally General Eye ED: Negative for scleral icterus Neck supple Resp normal respiratory effort and clear to auscultation bilaterally Cardio regular rate and regular rhythm Rate: other Other Details: Radial and carotid pulses are equal and symmetric GI GI Narrative: Abdomen is gravid with fundus consistent with reported gestational age No pain with palpation Back/Spine no CVA tenderness Back/Spine Narrative: No bony deformity or step-off of the thoracic or lumbar spine no midline tenderness to palpation. There is left paralumbar tension and spasm noted that worsens with extension and rotation. No saddle anesthesia. Negative straight leg raise. Negative clonus and Babinski. Patellar reflexes are plus 2 out of 4 bilaterally Extremity normal to inspection Neuro oriented x3, CN's II-XII intact bilaterally and no sensory deficits noted Sensorium / Orientation: alert Motor Exam: strength 5/5 throughout Psych mental status grossly normal Skin no rashes or lesions noted and no wounds General Skin Exam: Negative for jaundice or pallor MDM MDM MDM Narrative Medical decision making narrative: Patient presented to the ER with stable vitals. She is approximately 19.5 weeks but does not have abdominal pain and she denies vaginal bleeding or discharge or dysuria and therefore my concern that her back pain is associated with or secondary to her is low. Her vitals are stable and they do not show elevation to her blood pressure to suggest preeclampsia. Patient also denies loss of bowel or bladder control or IV drug use going against cauda equina or epidural abscess. 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 At this time with low concern that this is related or secondary to infection or compression fracture I do not feel there is need for imaging or testing. Patient will be given symptomatic medications and is otherwise safe for discharge History & Record Review Discussion w/independent historian: Patient Discharge Plan Triage Chief Complaint: Back Other Complaint: ED Provider: Reese Brown Dx/Rx/DC Orders Clinical Impression: Acute lumbosacral myofascial strain, Spasm of muscle of lower back, History of fibromyalgia, History of ankylosing spondylitis Instructions: ED Back Spasm, No Trauma, ED Back Sprain/Strain Prescriptions: New oxycodone 5 mg capsule 5 mg PO Q6H PRN (Reason: pain) 3 Days Qty: 12 0RF methocarbamol 500 mg tablet 1,000 mg PO 4X/DAY PRN (Reason: Muscle pain/spasm) Qty: 56 0RF No Action docosahexaenoic acid [ DHA] PO ondansetron 8 mg tablet,disintegrating 8 mg PO Q8H PRN (Reason: nausea and vomiting) Qty: 20 0RF Primary Care Provider: Jhony Cook Referrals: Jhony Cook MD [Primary Care Provider] - Activity Restrictions/Additional Instructions: Please stop the Flexeril and begin taking the Robaxin as directed for improved muscle tension/spasm control. You may use the oxycodone for the next few days as directed for improved pain relief. Follow-up with your doctor for repeat evaluation and return to the ER should you have any further concerns Print Language: Georgian Disposition Disposition: Home, Self Care Discharge Date/Time: 09/24/23 01:57
[2023-09-24] MEDS: oxyCODONE 5 MG Tablet 10 MG PO (01:53)
[2023-09-24 01:56] VITALS: BP 100/60; PULSE 89; RESP 18; TEMP 36.6; O2SAT 97
== END 2023-09-24 01:57 | disposition home or self-care (01) ==
PROVIDERS: Emergency Provider Emergency Medicine; PCP Internal Medicine; Visit Provider Emergency Medicine
DX: S39.012A Strain of muscle, fascia and tendon of lower back, initial encounter (principal); M45.9 Ankylosing spondylitis of unspecified sites in spine; O9A.212 Injury, poisoning and certain other consequences of external causes complicating pregnancy, second trimester; M62.838 Other muscle spasm; Z87.891 Personal history of nicotine dependence; Z3A.19 19 weeks gestation of pregnancy; M79.7 Fibromyalgia; Z90.49 Acquired absence of other specified parts of digestive tract; O99.891 Other specified diseases and conditions complicating pregnancy
CPT/HCPCS: 99283

== ENCOUNTER 2023-09-25 17:39 | Emergency (ER) | payer BC, SELFPAY ==
[2023-09-25 17:39] VITALS: BP 115/78; PULSE 73; RESP 14; TEMP 36.6; O2SAT 98
--- NOTE | 2023-09-25 18:30 | CT_ITS ---
EXAM: CT HEAD WITHOUT INTRAVENOUS CONTRAST CLINICAL INDICATION: Pain: Shield abd Pt is TECHNIQUE: Multiple axial images were obtained of the head without intravenous contrast. This CT exam was performed using one or more of the following dose reduction techniques: automated exposure control, adjustment of the mA and/or kV according to patient size, and/or use of iterative reconstruction technique. COMPARISON: No relevant prior studies available. FINDINGS: BRAIN AND EXTRA-AXIAL SPACES: Unremarkable. No intra- or extra-axial hemorrhage. No evidence of acute infarct. No intracranial mass or mass effect. There is preservation of the [place]/white matter interface. Posterior fossa structures are unremarkable. Ventricles are appropriate for age. No hydrocephalus. Basal cisterns are patent. BONES/JOINTS: Unremarkable. No discrete lytic or blastic abnormalities. SINUSES: Unremarkable as visualized. Clear. MASTOID AIR CELLS: Unremarkable. Clear. ORBITS: Visualized globes, extraocular muscles, optic nerves and retrobulbar fat appear unremarkable. CT/Brain/Head without Contrast IMPRESSION: Negative head/brain CT without intravenous contrast. Electronically Signed: Dhruv Dillon MD at 19:35 EDT ,
--- NOTE | 2023-09-25 18:30 | EX.ED.VIS.HA ---
HPI History of Present Illness Chief Complaint: Headache Informant: patient Onset/Context/Timing Onset: Today and Hours Context: Sudden Timing: Continuous Quality -Headache: Negative for Similar Prior Headaches Current Severity: Moderate Maximum Severity: Severe Associated Symptoms/Injury Associated Symptoms: Negative for Fever, Nausea, Vomiting, Sore Throat, Sinus Pressure, Numbness, Tingling, Preceding Aura, Visual Changes, Blurred Vision, Photophobia or Visual Loss Injury - [place]: Negative for Direct Trauma, Fall or Assault Narrative Narrative: 28-year-old female history of ankylosing spondylitis fibromyalgia. Currently is almost 20 weeks tomorrow. States she typically does not get headaches. Today around 10 AM she woke up from sleep with a severe left-sided headache. No falls or trauma. She is not on any blood thinners. Denies any family history of intracranial bleeds, aneurysms or migraines. She denies any fever. No trouble using her arms or legs. No weakness or numbness. No visual change. The light does bother her eyes. This is her first . No neck pain. No sinus congestion. Prior similar symptoms: No Recent Illness/Hospitalization: No PFSH PFSH Medical History Anxiety Gastrointestinal problem Emotional problems UTI (urinary tract infection) Arthritis Anemia Fibromyalgia Lupus Celiac disease Ankylosing spondylitis Depression Ovarian cyst MRSA (methicillin resistant Staphylococcus aureus) Home Medications ?Medication ?Instructions ?Recorded ?Last Taken ?Type docosahexaenoic acid PO 06/25/23 Unknown History ondansetron 8 mg disintegrating 8 mg PO Q8H PRN nausea and 06/25/23 Unknown Rx tablet vomiting #20 tabs methocarbamol 500 mg tablet 1,000 mg (2 x 500 mg) PO 4X/DAY 09/24/23 Unknown Rx PRN Muscle pain/spasm #56 tabs oxycodone 5 mg capsule 5 mg PO Q6H PRN pain 3 days #12 09/24/23 Unknown Rx caps Allergy/AdvReac Type Severity Reaction Status Date / Time promethazine (From Phenergan) AdvReac Other Verified 06/25/23 02:14 Family History Other Anxiety Asthma CVA (cerebral vascular accident) Cancer Colon cancer Depression Diabetes H/O psychiatric care Mental disorder Suicide attempt Surgical History Hx of foot surgery History of cholecystectomy h/o right elbow I&D Social History Smoking Status: Former smoker alcohol intake: current details: occasional 1-3x month substance use type: does not use what type of physical activity do you participate in: walking ROS ROS ED ROS Narrative Headache today. Otherwise denies being recently ill. Review of Systems ROS Unobtainable: Denies due to encephalopathy Constitutional Constitutional ED: Denies chills or fever(s) Eyes Eyes: Reports other Details: Photophobia with the headache. ; Denies blurry vision, change in vision or diplopia ENT ENT ED: Denies ear pain, rhinorrhea or sore throat Cardiovascular Cardiovascular: Denies chest pain or palpitations Respiratory/Chest Respiratory/Chest: Denies cough, dyspnea or dyspnea on exertion Gastrointestinal Gastrointestinal: Denies abdominal pain, constipation, diarrhea, melena, nausea or vomiting Genitourinary Genitourinary ED: Denies dysuria or hematuria Musculoskeletal Musculoskeletal: Denies arthralgias or back pain Integumentary Denies abscess or Abrasions Neurologic Neurologic: Reports headache(s); Denies paresthesias or weakness Psychiatric Psychiatric: Denies anxiety or depression Endocrine Endocrinology: Denies polydipsia Hematologic/Lymphatic Hematologic/Lymphatic: Denies easy bleeding Allergic/Immunologic Allergic/Immunologic ED: Denies mouth swelling EXAM Physical Exam Narrative Exam Narrative: Well-appearing 28-year-old female. Vital signs stable afebrile. H EENT exam unremarkable. Mytrex membranes. Pupils round reactive light. No facial droop. No frontal maxillary sinus tenderness. No rash. Neck nontender. No meningismus. No lymphadenopathy. Lungs clear to auscultation. Heart regular rhythm no murmur rate about 70. Abdomen soft nontender. Gravid uterus. Moving all 4 extremities. 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 Dorsi plantarflexion intact. Fingertip to nose within normal limits. Neurologic exam normal. NIH 0. Const Vital Signs: 09/25/23 17:39 Temperature 98 F Temperature Source Temporal Pulse Rate 73 Respiratory Rate 14 Blood Pressure 115/78 Blood Pressure Mean 90 Pulse Ox 98 Oxygen Delivery Method Room Air Positive well nourished and well developed; Negative for obese, cachectic, contractures or unkempt General Appearance ED: well developed and NAD; Negative for unkempt, cachectic, contractures, cyanotic or diaphoretic Nutritional Appearance: Negative for cachectic or obese HEENT Reports normocephalic and moist mucous membranes; Denies dry mucous membranes atraumatic; Negative for trauma, tenderness, temporal artery tenderness or vesicular rash Face and Sinus: Negative for sinus tenderness Mouth ED: No dry mucous membranes Mouth: No dry mucous membranes Eyes PERRL and EOMs intact bilaterally General Eye ED: Negative for pale conjunctiva or scleral icterus Neck no lymphadenopathy, supple, no meningeal signs and no JVD Resp normal respiratory effort and clear to auscultation bilaterally Effort and Inspection: Negative for retractions Auscultation: Negative for rales, rhonchi, wheezes or diminished lung sounds Cardio regular rate, regular rhythm, S1 normal heart sound, S2 normal heart sound and no murmurs Rate: Negative for bradycardia or tachycardic Rhythm: Negative for abnormal rhythm GI non-tender and non-distended GI Narrative: Gravid nontender uterus. Palpation: soft; Negative for firm, tender or guarding Back/Spine no CVA tenderness General Back: Negative for CVA tenderness or tenderness Cervical Spine: Negative for cervical spine tenderness Thoracic Spine / Upper Back: Negative for thoracic spinal tenderness Lumbar Spine / Lower Back: Negative for lumbar spinal tenderness Extremity normal to inspection and full ROM General Extremety ED: Negative for edema or tenderness General Extremity: Negative for edema Neuro oriented x3 and CN's II-XII intact bilaterally Sensorium / Orientation: awake, alert, oriented to person, oriented to place and oriented to time; Negative for orientation impaired or lethargic Coordination / Balance: [id number] test normal Motor Exam: strength 5/5 throughout Comatose: Negative for other Psych mental status grossly normal Appearance: Negative for unkempt Attitude: No agitated Mood & Affect: Negative for depressed, anxious or tearful Skin General Skin Exam: Negative for elasticity normal or turgor normal Lesions: no lesions Rashes: no rashes Trauma: Negative for abrasion MDM MDM MDM Narrative Medical decision making narrative: 28-year-old female almost 20 weeks complaining of a headache. Typically does not get headaches. There is no family history of intracranial bleeds or aneurysms. No family history of migraines. She denies any trauma. She had no other symptoms such as nausea, vomiting or diarrhea. No fever or sinus congestion. She has a normal neurologic exam. She will be treated with Benadryl, fluids and Reglan. I will obtain a CT of her head since she states it is the worst headache of her life. Repeat exam at 7:55 PM headache is not significantly improved. Her neurologic exam remains normal. We went over her CAT scan results which were unremarkable. Her neurologic exam has not changed and she has an NIH is 0. Patient wanted to be discharged home. She did not want any further workup. She will be given a small dose of morphine for pain. Outpatient follow-up. History & Record Review Discussion w/independent historian: Patient Radiography Diagnostic Testing: Clinical Impression(s) from Imaging Studies Brain CT 09/25/23 18:30 IMPRESSION: Negative head/brain CT without intravenous contrast. Electronically Signed: Dhruv Dillon MD at 19:35 EDT , Discharge Plan Triage Chief Complaint: Headache ED Provider: Jeancarlos Chairez Dx/Rx/DC Orders Clinical Impression: Headache, History of fibromyalgia, Second trimester Instructions: ED Headache Unspecified Prescriptions: No Action docosahexaenoic acid [ DHA] PO ondansetron 8 mg tablet,disintegrating 8 mg PO Q8H PRN (Reason: nausea and vomiting) Qty: 20 0RF oxycodone 5 mg capsule 5 mg PO Q6H PRN (Reason: pain) 3 Days Qty: 12 0RF methocarbamol 500 mg tablet 1,000 mg PO 4X/DAY PRN (Reason: Muscle pain/spasm) Qty: 56 0RF Primary Care Provider: Jhony Cook Referrals: Jhony Cook MD [Primary Care Provider] - 3-5 Days if not improving Activity Restrictions/Additional Instructions: Follow-up either with your SPEECH AND LANGUAGE CLINICIAN or your primary care physician if not improving. Your CAT scan was normal. We do not have a specific cause for your headache. It could be a migraine. Plenty of fluids. Rest. Tylenol. Zofran as needed for nausea which you have at home. Print Language: Mohawk Disposition Disposition: Home, Self Care
[2023-09-25] MEDS: DiphenhydrAMINE 50 MG/ML Syringe 25 MG IV (18:42)
[2023-09-25] MEDS: proCHLORPERazine 10 MG/2 ML Vial IV (18:42)
[2023-09-25] MEDS: 0.9% Normal Saline (1000mL) 1,000 ML 999 ML IV (18:42)
[2023-09-25 19:39] VITALS: PULSE 68
[2023-09-25] MEDS: Morphine 4 MG/ML Syringe IV (20:06)
[2023-09-25 20:10] VITALS: BP 120/79; PULSE 68; RESP 17; TEMP 36.4; O2SAT 99
== END 2023-09-25 20:11 | disposition home or self-care (01) ==
PROVIDERS: Emergency Provider Emergency Medicine; PCP Internal Medicine; Visit Provider Emergency Medicine
DX: O99.891 Other specified diseases and conditions complicating pregnancy (principal); R51.9 Headache, unspecified; Z3A.19 19 weeks gestation of pregnancy; Z87.891 Personal history of nicotine dependence
CPT/HCPCS: 70450; 96361; 96374; 96375; 99282; J7030; A4216

== ENCOUNTER 2023-12-03 00:25 | Outpatient (CLI) | payer BC, SELFPAY ==
[2023-12-03 00:33] VITALS: BMI 27.8
[2023-12-03 00:49] VITALS: RESP 16; TEMP 36.5
[2023-12-03 00:51] VITALS: BP 107/70; PULSE 89
[2023-12-03 01:06] VITALS: BP 105/72; PULSE 84
[2023-12-03 01:22] VITALS: BP 110/70; PULSE 79
[2023-12-03] MEDS: Mag /Aluminum/Simeth WCH UDC 30 ML ORAL.SUSP PO (01:26)
[2023-12-03] MEDS: Ondansetron 4 MG/2 ML Vial IV (01:27)
[2023-12-03] MEDS: Lactated Ringers 1,000 ML 999 ML IV (01:37)
[2023-12-03 01:41] LABS: Red Blood Cells-Urine 0 SEEN /hpf (0-5)
[2023-12-03 01:44] LABS: Hematocrit 29.6 % (37-47); Hemoglobin 9.9 g/dL (12.0-15.0); Mean Corp Hgb Conc 33.4 g/dL (32-36); Mean Corpuscular Hgb 28.6 pg (27.0-32.0); Mean Corpuscular Volume 85.5 fL (81-99); Mean Platelet Vol. 10.7 fl (6.2-12.0); Platelet Count 231 K/mm3 (150-450); RBC Distribution Width CV 11.9 % (11.6-14.6); RBC Distribution Width SD 36.6 fl (35.1-43.9); Red Blood Count 3.46 M/mm3 (4.2-5.4); White Blood Count 10.4 K/mm3 (4.4-11.0)
[2023-12-03 01:45] LABS: Color, Urine Yellow (Yellow); Glucose, Dipstick Normal (Normal); Ketone-Dipstick 5 mg/dl (Negative); Leukocyte Esterase-Dipstick 100 /ul (Negative); Nitrite-Dipstick Negative (Negative); Occult Blood-Urine Negative /ul (Negative); Protein-Dipstick 15 mg/dl (Negative); Specific Gravity, Urine 1.025 (1.002-1.030); Urine Bilirubin Dipstick Negative (Negative); Urine Clarity Sl. Cloudy (Clear); Urine Urobilinogen 1 mg/dl (Normal)
[2023-12-03 01:54] LABS: Bacteria 1+ /hpf (None Seen); Mucous, Urine RARE /hpf (<or=2+); Squamous Epithelial Cells - UA 0-5 SEEN /hpf (5-10); White Blood Cells 0-5 SEEN /hpf (0-5)
[2023-12-03 01:57] LABS: AST(SGOT) 15 U/L (15-37); Alanine Aminotransfer ALT/SGPT 16 U/L (13-56); Creatinine, Serum 0.35 mg/dL (0.55-1.02); EST Glomerular Filtration Rate 241 mL/min (>60); Est Glom Filt Rate - Afr Amer 291 mL/min (>60); Estimated Creatinine Clearance 221.63 ml/min; Uric Acid 2.8 mg/dL (2.6-6.0)
[2023-12-03 02:16] LABS: Protein, Urine (Random) 28.8 mg/dL (<11.9); Protein:Creat Ratio 124 mg/g CRE (0-200)
[2023-12-03 02:31] VITALS: RESP 16; TEMP 36.3; O2SAT 96
[2023-12-03 02:32] VITALS: BP 102/67; PULSE 62
--- NOTE | 2023-12-05 08:54 | OB.TRI.NOTE ---
HPI - General General Date of Admission: 12/03/23 Date of Service: 12/03/23 Chief Complaint: dizziness HPI Narrative JOSHUA LEMUS, is a 28 F who presents 1 para 0 at 30-3/7 weeks complaining nausea vomiting dizziness. Maternal Data Information Final AMELIA: 02/[birth year]/24 Gestational age: 30 3/7 PFSH PFSH Medical History Anxiety Gastrointestinal problem Emotional problems UTI (urinary tract infection) Arthritis Anemia Fibromyalgia Lupus Celiac disease Ankylosing spondylitis Depression Ovarian cyst MRSA (methicillin resistant Staphylococcus aureus) Home Medications ?Medication ?Instructions ?Recorded ?Last Taken ?Type docosahexaenoic acid 1 cap PO 06/25/23 Unknown History methocarbamol 500 mg tablet 1,000 mg (2 x 500 mg) PO 4X/DAY 09/24/23 Unknown Rx PRN Muscle pain/spasm #56 tabs oxycodone 5 mg capsule 5 mg PO Q6H PRN pain 3 days #12 09/24/23 Unknown Rx caps citalopram 10 mg tablet (Celexa) 10 mg PO DAILY 12/03/23 Unknown History famotidine 20 mg tablet (Acid 40 mg PO DAILY 12/03/23 Unknown History Controller) ondansetron 8 mg disintegrating 4 mg PO Q8H PRN nausea and vomiting 12/03/23 Unknown History tablet Allergy/AdvReac Type Severity Reaction Status Date / Time acetaminophen (From Percocet) Allergy Rash Verified 12/03/23 00:41 escitalopram (From Lexapro) Allergy altered Verified 12/03/23 00:41 mental state oxycodone (From Percocet) Allergy Rash Verified 12/03/23 00:41 promethazine (From Phenergan) AdvReac Other Verified 12/03/23 00:41 Family History Other Anxiety Asthma CVA (cerebral vascular accident) Cancer Colon cancer Depression Diabetes H/O psychiatric care Mental disorder Suicide attempt Surgical History Hx of foot surgery History of cholecystectomy h/o right elbow I&D Social History Smoking Status: Former smoker alcohol intake: current details: occasional 1-3x month substance use type: does not use what type of physical activity do you participate in: walking NST FHR Rate Baby A Baseline: 120 Variability:: Moderate Accelerations:: 15 x 15 Decelerations:: None NST Reactive:: Yes FHR Category:: Category I Uterine Activity:: no regular ctxs Assessment & Plan (1) 30 weeks gestation of : PLAN: Patient had negative preeclampsia labs and normal blood pressures. Monitoring showed category 1 heart tones no evidence of labor. Patient was discharged home to follow-up in the office. Labs did reveal antepartum anemia with hemoglobin at 9.9. Patient is a nulliparrouspatient at 30-3/7 weeks gestation.
== END 2023-12-03 02:42 | disposition home or self-care (01) ==
LOC: WPOUT 00:29 → WP 00:29
PROVIDERS: PCP Internal Medicine; Referring Provider Advanced Practice Midwife; Visit Provider Advanced Practice Midwife
DX: O21.2 Late vomiting of pregnancy (principal); O99.343 Other mental disorders complicating pregnancy, third trimester; F32.A Depression, unspecified; F41.9 Anxiety disorder, unspecified; Z87.891 Personal history of nicotine dependence; Z3A.30 30 weeks gestation of pregnancy
CPT/HCPCS: 96365; 96375; 36415; 59025; 59050; 81001; 82565; 82570; 84156; 84450; 84460; 84550; 85027; 99221; J7120; G0378; J2405

== ENCOUNTER 2024-02-17 19:24 | Inpatient (IN) | payer BC, SELFPAY ==
--- NOTE | 2024-02-17 19:35 | PCM.HP.OB ---
HPI - General General Date of Admission: 02/17/24 Date of Service: 02/17/24 Chief Complaint: IOL HPI Narrative JOSHUA LEMUS, is a 28 F who presents elective IOL at 40+4 Maternal Data Information Final AMELIA: 02/13/24 Gestational age: 40+4 PFSH PFSH Medical History Anxiety Gastrointestinal problem Emotional problems UTI (urinary tract infection) Arthritis Anemia Fibromyalgia Lupus Celiac disease Ankylosing spondylitis Depression Ovarian cyst MRSA (methicillin resistant Staphylococcus aureus) Home Medications ?Medication ?Instructions ?Recorded ?Last Taken ?Type docosahexaenoic acid 1 cap PO DAILY 06/25/23 02/16/24 09:00 History famotidine 20 mg tablet (Acid 40 mg PO DAILY gerd 12/03/23 02/16/24 21:00 History Controller) ondansetron 8 mg disintegrating 4 mg PO Q8H PRN nausea and vomiting 12/03/23 02/03/24 History tablet Allergy/AdvReac Type Severity Reaction Status Date / Time escitalopram (From Lexapro) Allergy altered Verified 02/17/24 19:41 mental state promethazine (From Phenergan) AdvReac Other Verified 02/17/24 19:41 Family History Other Anxiety Asthma CVA (cerebral vascular accident) Cancer Colon cancer Depression Diabetes H/O psychiatric care Mental disorder Suicide attempt Surgical History Hx of foot surgery History of cholecystectomy h/o right elbow I&D Social History Smoking Status: Former smoker alcohol intake: current details: occasional 1-3x month substance use type: does not use what type of physical activity do you participate in: walking History Elective abortions Hx Para 0 Spontaneous abortions Hx # Term Pregnancies Ectopic pregnancies Hx # Pregnancies Multiple births # of living children NST FHR Rate Baby A Baseline: 130 Variability:: Moderate Accelerations:: 15 x 15 Decelerations:: None NST Reactive:: Yes FHR Category:: Category I Uterine Activity:: occasional ROS Constitutional Constitutional: Denies fatigue, fever(s) or malaise Eyes Eyes: Denies change in vision ENT HEENT: Denies dizziness or headache(s) Cardiovascular Cardiovascular: Denies chest pain, dyspnea or lightheadedness Respiratory/Chest Respiratory/Chest: Denies cough or dyspnea Gastrointestinal Gastrointestinal: Denies change in bowel habits Genitourinary Genitourinary: Denies burning urination or genital lesions Integumentary Integumentary: Denies rash Neurologic Neurologic: Denies confusion, dizziness, headache(s), numbness or weakness Physical Exam Const alert and no apparent distress General Appearance: cooperative HEENT normocephalic Resp normal respiratory effort Cardio regular rate GI soft to palpation GI Narrative: gravid, nontender, appropriate for gestational age Manual OB Exam: dilated 1, effaced 50 and station -3 Extremity no calf tenderness General Extremity: edema Skin no wounds Rashes: No rashes noted Psych activity/motor behavior normal Labs Labs Labs: Blood Type B POSITIVE Antibody Screen NEGATIVE Hct 32.6 % (37-47) L Hgb 10.7 g/dL (12.0-15.0) L Syphilis Total Ab Non-reactive Assessment & Plan (1) 40 weeks gestation of : (2) Elective induction of labor planned: PLAN: Plan cytotec/diehl bulb GBS negative Epidural prn
[2024-02-17 19:39] VITALS: BMI 31.8
[2024-02-17] MEDS: Lactated Ringers 1,000 ML 50 ML IV (19:40)
[2024-02-17 20:05] LABS: Absolute Lymphocyte Count 1.54 X10^3/uL (0.83-4.51); Absolute Neutrophil Count 7.7 X10^3/uL (2.0-7.7); Basophil# 0.06 X10^3/uL; Basophil% 0.6 % (0-1); Eosinophil# 0.07 X10^3/uL; Eosinophils% 0.7 % (0-5); Hematocrit 32.6 % (37-47); Hemoglobin 10.7 g/dL (12.0-15.0); Lymphocyte # 1.54 X10^3/ul (0.83-4.51); Lymphocyte % 15.1 % (19-41); Mean Corp Hgb Conc 32.8 g/dL (32-36); Mean Corpuscular Hgb 28.7 pg (27.0-32.0); Mean Corpuscular Volume 87.4 fL (81-99); Mean Platelet Vol. 12.3 fl (6.2-12.0); Monocyte# 0.69 X10^3/uL; Monocyte% 6.8 % (0-10); NRBC Flagged by Analyzer 0 % (0-5); Neutrophil # 7.74 X10^3/uL (2.7-7.7); Neutrophil % 75.7 % (47-70); Platelet Count 174 K/mm3 (150-450); RBC Distribution Width SD 44.7 fl (35.1-43.9); Red Blood Count 3.73 M/mm3 (4.2-5.4); White Blood Count 10.2 K/mm3 (4.4-11.0)
[2024-02-17 20:07] VITALS: BP 116/72; PULSE 87; RESP 16; TEMP 36.7; O2SAT 98
[2024-02-17] MEDS: miSOPROStol 25 MCG TABLET VAGINAL (21:15)
[2024-02-17 21:17] VITALS: BP 114/67; PULSE 77; RESP 16; TEMP 36.6; O2SAT 98
[2024-02-17] MEDS: Acetaminophen 500 MG Tablet PO (22:20)
[2024-02-18] VITALS (29 sets, daily range): BP systolic 91–135; BP diastolic 55–85; PULSE 63–102; RESP 15–18; TEMP 36.1–36.9; O2SAT 94–100
[2024-02-18 00:22] LABS: Syphilis Antibodies Non-reactive
[2024-02-18] MEDS: miSOPROStol 25 MCG TABLET VAGINAL (01:25)
--- NOTE | 2024-02-18 08:08 | PCM.PN.OB ---
Subjective Subjective Coping in bed resting, family at bedside. Objective Data Objective Data Vital Signs: Vital Signs Temp Pulse Resp BP Pulse Ox 97.3 F L 69 16 117/71 98 02/18/24 07:23 02/18/24 07:25 02/18/24 07:23 02/18/24 07:25 02/18/24 05:30 Weight: 174 lb Body Mass Index (BMI) 31.8 Intake & Output: Intake and Output for Last 24 Hours 02/16/24 02/17/24 02/18/24 23:59 23:59 23:59 Intake Total 0.83 / 0.83 566.1 / 566.1 Balance 0.83 / 0.83 566.1 / 566.1 Lab / Micro Data 02/17/24 19:40 Labs: Laboratory Results - last 24 hr 02/17/24 19:40: WBC 10.2, RBC 3.73 L, Hgb 10.7 L, Hct 32.6 L, MCV 87.4, MCH 28.7, MCHC 32.8, RDW Std Deviation 44.7 H, RDW Coeff of Jimmie 14.0, Plt Count 174, MPV 12.3 H, Immature Gran % (Auto) 1.100 H, Neut % (Auto) 75.7 H, Lymph % (Auto) 15.1 L, [place] % (Auto) 6.8, Eos % (Auto) 0.7, Baso % (Auto) 0.6, Absolute Neuts (auto) 7.7, Absolute Lymphs (auto) 1.54, Nucleated RBC % 0, Syphilis Total Ab Non-reactive, Blood Type B POSITIVE, Antibody Screen NEGATIVE Physical Exam Manual OB Exam: estimated gestational size appropriate, presentation cephalic, dilated 1cm, effaced 60%, station -3 and other diehl inserted through cervix without difficulty. 30ml NS instilled. tolerated well. Assessment & Plan (1) Elective induction of labor planned: (2) 40 weeks gestation of : (3) Celiac disease: (4) Autoimmune disease: (5) Ankylosing spondylitis: PLAN: Plan 1) Diehl inserted for continued cervical ripening 2) Cytotec dose x 2, last given at 1am 3) Start Pitocin 4) Epidural for pain management upon request 5) collaborative physician and notified of patient status.
[2024-02-18] MEDS: 0.9% Normal Saline Single 100 ML IV.SOLN. INTRA-UTER (09:06)
[2024-02-18] MEDS: Oxytocin 15 Units/NS 250ml 15 UNITS/250 ML IV.SOLN 2 UNITS IV (09:33)
[2024-02-18] MEDS: Ondansetron 4 MG/2 ML Vial IV ×2 (10:59→18:05)
[2024-02-18] MEDS: fentaNYL-bupivacaine (epidural) 100 ML BAG EPIDURAL ×3 (11:13→22:39)
--- NOTE | 2024-02-18 12:18 | PN.OBGYN_ITS ---
Subjective Subjective Resting in bed comfortable with epidural. Family at bedside Objective Data Objective Data 4cm/70%/-2. AROM for large amount of lightly stained meconium fluid. IUPC placed Vital Signs: Vital Signs Temp Pulse Resp BP Pulse Ox 97.8 F 63 16 109/71 98 02/18/24 09:00 02/18/24 10:41 02/18/24 10:30 02/18/24 10:41 02/18/24 10:40 Weight: 174 lb Body Mass Index (BMI) 31.8 Intake & Output: Intake and Output for Last 24 Hours 02/16/24 02/17/24 02/18/24 23:59 23:59 23:59 Intake Total 0.83 / 0.83 566.1 / 566.1 Balance 0.83 / 0.83 566.1 / 566.1 Lab / Micro Data 02/17/24 19:40 Labs: Laboratory Results - last 24 hr 02/17/24 19:40: WBC 10.2, RBC 3.73 L, Hgb 10.7 L, Hct 32.6 L, MCV 87.4, MCH 28.7, MCHC 32.8, RDW Std Deviation 44.7 H, RDW Coeff of Jimmie 14.0, Plt Count 174, MPV 12.3 H, Immature Gran % (Auto) 1.100 H, Neut % (Auto) 75.7 H, Lymph % (Auto) 15.1 L, [place] % (Auto) 6.8, Eos % (Auto) 0.7, Baso % (Auto) 0.6, Absolute Neuts (auto) 7.7, Absolute Lymphs (auto) 1.54, Nucleated RBC % 0, Syphilis Total Ab Non-reactive, Blood Type B POSITIVE, Antibody Screen NEGATIVE NST FHR Rate Baby A Baseline: 130 Variability:: Minimal Accelerations:: None Decelerations:: None FHR Category:: Category II Uterine Activity:: Every 2-3 minutes Assessment & Plan (1) 40 weeks gestation of : (2) Elective induction of labor planned: PLAN: Plan 1) AROM 2) Epidural for pain management 3) Continue with active management pitocin per protocol 4) IUPC and FSE if needed 5) updated on patient status
[2024-02-18] MEDS: Lactated Ringers 1,000 ML 50 ML IV (16:48)
[2024-02-18] MEDS: proCHLORPERazine 10 MG/2 ML Vial IV (20:36)
[2024-02-18] MEDS: 0.9% Saline Lock 10 ML Syringe IV (20:37)
--- NOTE | 2024-02-18 23:33 | OB.VAGDELI_ITS ---
Assessment & Plan (1) Vaginal delivery: (2) Second degree perineal laceration: (3) Meconium stained amniotic fluid, delivered, current hospitalization: Maternal Data Information AMELIA Calculator Estimated Delivery Date Method Current WG Current Estimate 02/13/24 Manual 40w 5d Vaginal Delivery Maternal Presentation Maternal Presentation: Elective Induction (Maternal discomfort) Type of Induction: Pitocin, Tierney Bulb and Cytotec Vaginal Delivery Information Procedure Performed: Spontaneous Vaginal Delivery Date of Procedure: 02/18/24 Pre-Procedure Diagnosis: Elective Induction of Labor Post-Procedure Diagnosis: , second degree perineal laceration Type of anesthesia: Epidural Estimated Blood Loss: 200 ml Time of Delivery: 23:00 Findings Description of procedure: Progressed to complete with urge to push. Epidural for pain management. of viable male over 2nd degree perineal laceration. APGARS 8,9 respectively. Called for delivery and then patient had rapid decent. Upon arrival delivered by nursing staff. head delivered with body immediately forthcoming. Placed on maternal abdomen, strong cry. Mouth and nares suctioned for secretions. Pitocin started for active 3rd stage management. Cord doubly clamped and cut by FOB. Placenta delivered intact via hanson, 3 vessel cord intact. Perineum inspected and revealed intact degree perineal laceration. Repaired with 3.0 vicryl rapide and epidural Fundus firm and hemostasis achieved. EBL 200ml. Mom and baby stable, planning to breastfeed. Family bonding well. notified of delivery. Presentation: Vertex Amniotic Membrane Rupture Type: Artificial Amniotic Fluid Description: Lightly stained meconium Placental Delivery Description: Spontaneous Placenta Disposition: [facility] Specimen collected: No Cord Vessel Description: 3 Vessels Cord Entanglement: None Infant A Gender: Male Delayed Cord Clamping: No Crimper Operator hardware technician: No Post Vaginal Deli Medications given after delivery: IV Pitocin Episiotomy Description: None Laceration: Perineal Extension/lac and 2nd degree Complication Complications: No
[2024-02-18] MEDS: Oxytocin 15 Units/NS 250ml 15 UNITS/250 ML IV.SOLN 83 UNITS IV (23:35)
[2024-02-19] VITALS (24 sets, daily range): BP systolic 91–114; BP diastolic 56–80; PULSE 63–101; RESP 15–18; TEMP 36.3–36.6; O2SAT 96–99
[2024-02-19] MEDS: Acetaminophen 500 MG Tablet 1000 MG PO ×2 (04:21→16:33)
[2024-02-19 06:25] LABS: Absolute Lymphocyte Count 0.96 X10^3/uL (0.83-4.51); Absolute Neutrophil Count 17.1 X10^3/uL (2.0-7.7); Basophil# 0.06 X10^3/uL; Basophil% 0.3 % (0-1); Hematocrit 31.8 % (37-47); Hemoglobin 10.5 g/dL (12.0-15.0); Lymphocyte # 0.96 X10^3/ul (0.83-4.51); Lymphocyte % 4.9 % (19-41); Mean Corpuscular Hgb 28.7 pg (27.0-32.0); Mean Corpuscular Volume 86.9 fL (81-99); Monocyte% 7.1 % (0-10); NRBC Flagged by Analyzer 0 % (0-5); Neutrophil # 17.05 X10^3/uL (2.7-7.7); Neutrophil % 86.7 % (47-70); Platelet Count 187 K/mm3 (150-450); RBC Distribution Width CV 14.1 % (11.6-14.6); RBC Distribution Width SD 45.1 fl (35.1-43.9); Red Blood Count 3.66 M/mm3 (4.2-5.4); White Blood Count 19.7 K/mm3 (4.4-11.0)
[2024-02-19] MEDS: Ibuprofen 600 MG Tablet PO (08:41)
--- NOTE | 2024-02-19 08:58 | PCM.PROGNOTE ---
Subjective Subjective Denies complaints Objective Data Objective Data Vital Signs: Vital Signs Temp Pulse Resp BP Pulse Ox O2 Del Method 97.5 F L 67 18 100/66 96 Room Air 02/19/24 08:41 02/19/24 08:41 02/19/24 08:41 02/19/24 08:41 02/19/24 04:31 02/19/24 08:41 Oxygen Delivery Method Room Air Weight: 174 lb Body Mass Index (BMI) 31.8 Intake & Output: Intake and Output for Last 24 Hours 02/17/24 02/18/24 02/19/24 23:59 23:59 23:59 Intake Total 0.83 / 0.83 1559.17 / 1559.17 250 / 250 Output Total 800 / 800 800 / 800 Balance 0.83 / 0.83 759.17 / 759.17 -550 / -550 Lab / Micro Data 02/19/24 05:50 Labs: Laboratory Results - last 24 hr 02/19/24 05:50: WBC 19.7 H, RBC 3.66 L, Hgb 10.5 L, Hct 31.8 L, MCV 86.9, MCH 28.7, MCHC 33.0, RDW Std Deviation 45.1 H, RDW Coeff of Jimmei 14.1, Plt Count 187, MPV 12.0, Immature Gran % (Auto) 1.000 H, Neut % (Auto) 86.7 H, Lymph % (Auto) 4.9 L, [place] % (Auto) 7.1, Eos % (Auto) 0.0, Baso % (Auto) 0.3, Absolute Neuts (auto) 17.1 H, Absolute Lymphs (auto) 0.96, Nucleated RBC % 0 Physical Exam Const alert, oriented x3 and no apparent distress HEENT normocephalic GI soft to palpation, non-tender and non-distended GI Narrative: fundus firm, mid & below umbilicus Extremity normal to inspection and no calf tenderness Assessment & Plan Assessment/Plan (1) Vaginal delivery: PLAN: PPD#1 PLAN: Plan Routine care
--- NOTE | 2024-02-19 13:56 | CASEMGMT ---
Social Work Assessment Labor and Delivery Unit Patient Address: [address] [place] [address] Phone number: [phone] Date of Referral: 02/19/24 Time of Referral:? 448 Referred By: Cindy Giordano Date of Intervention: ??02/20/24 Time of Intervention:? 1329 Reason for Referral:? depression Sw completed chart review and acknowledges social work consult due to maternal mental health history positive for depression. Sw presented to bedside and introduced self to mother of baby (MOB- Caryn) and father of baby (FOB- Bernardo ). Sw explained sw role during admission and completed psychosocial assessment. History obtained from: medical records, MOB Household composition: Currently residing in the home is MOB, and FOB. Parents deny any issues or concerns with housing. baby to be added to residence when ready for discharge. Patient's parent/guardian status:? JAMILAH states that she and FOB met while working together at [employer]. They have been together for one year. Y[place] baby is first baby for both parents together. No concerns reported of domestic violence or intimate partner violence. Medical History: ?JAMILAH is 28 year old female who is 1, para 0- now 1 following labor and delivery of . JAMILAH received routine care during with [facility]. JAMILAH presented to hospital for scheduled induction of labor at 40 weeks gestation. Baby boy, named Son Amin, was born on 02.18.24 via vaginal delivery weighing 7lb 13oz with apgars of 8 and9 at one and five minutes of life, respectfully. JAMILAH states that she is breast feeding and it is going well and baby will be followed by Dr. Rivera for pediatrics. Educational Status:? MOB and FOB graduated from high school. MOB obtained some college education, no degree. Parents deny any problems with reading, learning or comprehension Financial Status: Both parents are gainfully employed outside of the home working at [employer]. Infant Supplies: Parents have obtained all necessary baby supplies, including: car seat, safe sleep space, clothes, diapers and wi0pes. Childcare/Caregiver(s):? JAMILAH states that she will be the primary caregiver to baby along with FOB when he is not working. Parents are still working on figuring out childcare for when both parents have returned to work. Transportation:?? Both parents have their drivers license and reliable means of transportation. No barriers. Programs/Agencies Involved: ???JAMILAH states that she is connected to WIC. Children Services/Legal Issues:??? No history of involvement with children services. NO issues or concerns warranting referral to be made at this time. Behavioral Health Issues: ??Mental Health History:?KHOA denies mental health history. JAMILAH states that she has been diagnosed with anxiety, depression and BiPolar. JAMILAH also has history of suicide attempts. MOB states that she has dealt with her mental health, and has mental health resources that she is connected to mental health services and supports. JAMILAH states that she sees [facility] for psychiatry. JAMILAH states that in 2020 she was also diagnosed with PTSD from childhood trauma. JAMILAH states that she is prescribed celexa and this has helped her manage her mental health symptoms. JAMILAH reports to be in a much healthier place now than she was when she was younger. JAMILAH states that she has a lot of support found in her mom and FOB. ?? Substance Use History:?Parents deny substance use prior to and during . ? Family History:?Parents deny family history of substance use, addiction or significant mental health diagnoses. ? Drug Screens: No drug screens observed during chart review. Family/Social Stressors:? JAMILAH denies any issues, concerns or stressors at this time. MOB able to recognize her significant mental health history and reports that she has put a lot of work into improving her mental health and thinks that she is in a better place than when she was younger. Support Systems: JAMILAH identifies her mom and FOB as her biggest supports. Depression/Shaken Baby/Safe Sleeping: Sw educated MOB and FOB at length regarding signs and symptoms of baby blues and mood and anxiety disorders to be mindful of during this period. Sw pointed out to JAMILAH that she is more at risk for experiencing symptoms due to her mental health history. MOB states that she and FOB have already talked about being mindful of her mental health, and have talked about things that FOB can do to help her if she struggles. MOB denies feeling anxious, overwhelmed or depressed. MOB also educated to psychosis due to her history of BiPolar disorder. MOB states that she has healthy and appropriate coping mechanisms to utilize daily to help. Sw educated parents on shaken baby prevention and ABCs of safe sleep. Parents express understanding. ASSESSMENT:? MOB and baby admitted following labor and delivery of . MOB with significant mental health history, positive for anxiety, depression, PTSD and BiPolar. MOB is connected to mental health services and supports. MOB is prescribed medication to help her manage her mental health symptoms. MOB was observed to be attentive to baby and utilized appropriate hands on care in a loving manner. Parents have all necessary baby supplies and MOB has natural supports in place. PLAN:?? No other services requested or indicated. MOB and baby to be discharged when medically ready. Parents were provided literature regarding: signs and symptoms of baby blues and mood and anxiety disorders, Help Me Grow, shaken baby prevention, ABCs of safe sleep and a list of county resources that are available for them should any needs present themselves. Vidhya Barbosa, SUPPORT TEAM MEMBER, CLOTH DESIZING RANGE TENDER
[2024-02-20 00:23] VITALS: BP 112/74; PULSE 75; RESP 16; TEMP 36.5; O2SAT 99
[2024-02-20 05:00] VITALS: BP 99/68; PULSE 79; RESP 16; TEMP 36.6; O2SAT 100
--- NOTE | 2024-02-20 08:15 | PCM.PN.OB ---
Subjective Subjective Doing well. Ambulating and voiding without difficulty. Mild lochia. Breast feeding. Objective Data Objective Data Vital Signs: Vital Signs Temp Pulse Resp BP Pulse Ox O2 Del Method 97.8 F 79 16 99/68 100 Room Air 02/20/24 05:00 02/20/24 05:00 02/20/24 05:00 02/20/24 05:00 02/20/24 05:00 02/20/24 05:00 Oxygen Delivery Method Room Air Weight: 78.925 kg Body Mass Index (BMI) 31.8 Intake & Output: Intake and Output for Last 24 Hours 02/18/24 02/19/24 02/20/24 23:59 23:59 23:59 Intake Total 1559.17 / 1559.17 250 / 250 Output Total 800 / 800 800 / 800 Balance 759.17 / 759.17 -550 / -550 Lab / Micro Data 02/19/24 05:50 ROS Constitutional Constitutional: Denies fatigue, fever(s) or malaise Eyes Eyes: Denies change in vision ENT HEENT: Denies dizziness or headache(s) Cardiovascular Cardiovascular: Denies chest pain, dyspnea or lightheadedness Respiratory/Chest Respiratory/Chest: Denies cough or dyspnea Gastrointestinal Gastrointestinal: Denies change in bowel habits Genitourinary Genitourinary: Denies burning urination or genital lesions Integumentary Integumentary: Denies rash Neurologic Neurologic: Denies confusion, dizziness, headache(s), numbness or weakness Physical Exam Const alert and no apparent distress Narrative: Fundus firm, below umbilicus. Assessment & Plan (1) Vaginal delivery: (2) Second degree perineal laceration: PLAN: Plan discharge home
--- NOTE | 2024-02-20 08:16 | PCM.DC.SUM ---
Providers Date of Admission: 02/17/24 Date of Discharge: 02/20/24 Primary Care Physician: Dr. Jhony Cook MD Reason For Visit: VAGINAL DELIVERY Diagnosis Discharge Diagnosis (1) Vaginal delivery: Status: Acute Code(s): O80 - Encounter for full-term uncomplicated delivery (2) Second degree perineal laceration: Status: Acute Code(s): O70.1 - Second degree perineal laceration during delivery Plan discharge home Medications at Discharge Home Medications docosahexaenoic acid 1 cap PO DAILY 06/25/23 famotidine 20 mg tablet (Acid Controller) 40 mg PO DAILY gerd 12/03/23 Hospital Course Operations None Procedures None Summary of Care Provided Minutes Spent on Discharge: 20 Hospital Course: IOL at 40+4. without complication. Breast feeding at discharge. Physical Exam Const alert and no apparent distress Narrative: Fundus firm, below umbilicus. Weight / BMI Weight Weight: 78.925 kg Body Mass Index (BMI) 31.8 ABG / Lab / Microbiology Data 02/19/24 05:50 D/C Instructions May resume sexual activity in: 6 weeks DC O2, CPAP, BIPAP Needs Additional Home O2 Discharge instructions: No DC home with Oxygen: No Please Follow Up With: Ayse Pina MD When: Follow up with our office in 1-2 and 6 weeks or as needed. [phone] Meaningful Use Info Meaningful Use Meaningful Use Diagnoses (Choose all that apply): None applicable Ischemic Stroke Statin Dosing Therapy Reference: STATIN DOSE THERAPY REFERENCE: * Patients > 75 years receive moderate or high dose statin therapy. * Patients 75 years or YOUNGER should receive HIGH intensity statin dose unless contraindicated. You will be required to document reason for non-treatment if statin daily dose does not meet guidelines. HIGH DOSE STATIN THERAPY DAILY Atorvastatin > than or = to 40 mg Rosuvastatin > than or = to 20 mg Amlodipine + Atorvastatin > than or = to 2.5/40 mg Ezetimibe + Simvastatin 10/80 mg Simvastatin 80mg Discharge Plan Admission Admit Date/Time: 02/17/24 19:24 Primary Reason for Your Visit: induction of labor Attending Provider: Cindy Giordano Primary Care Provider: Jhony Cook Discharge Orders/Prescriptions Prescriptions: Continued docosahexaenoic acid [ DHA] 1 cap PO DAILY famotidine [Acid Controller] 20 mg tablet 40 mg PO DAILY Discontinued ondansetron 8 mg tablet,disintegrating 4 mg PO Q8H PRN (Reason: nausea and vomiting) Referrals / Follow Up: Jhony Cook MD [Primary Care Provider] - Disposition Disposition (needs filled in before D/C Order can be placed): Home, Self Care
[2024-02-20] MEDS: Ibuprofen 600 MG Tablet PO (08:17)
[2024-02-20] MEDS: Senna/Docusate Sodium 1 Tablet PO (08:17)
[2024-02-20 08:22] VITALS: BP 95/67; PULSE 69; RESP 18; TEMP 36.9; O2SAT 99
== END 2024-02-20 10:50 | disposition home or self-care (01) | DRG 807 ==
PROVIDERS: Admitting Provider Obstetrics & Gynecology; PCP Internal Medicine; Visit Provider Advanced Practice Midwife
DX: O48.0 Post-term pregnancy (principal); Z37.0 Single live birth; K90.0 Celiac disease; M45.9 Ankylosing spondylitis of unspecified sites in spine; M79.7 Fibromyalgia; O99.892 Other specified diseases and conditions complicating childbirth; O70.1 Second degree perineal laceration during delivery; O77.0 Labor and delivery complicated by meconium in amniotic fluid; O99.62 Diseases of the digestive system complicating childbirth; Z3A.40 40 weeks gestation of pregnancy; Z87.891 Personal history of nicotine dependence
CPT/HCPCS: 59025; 59050; 85025; 86780; 86850; 86900; 86901; 99221; J7120; A4216; G0378; J2405

== ENCOUNTER 2025-02-04 16:09 | Emergency (ER) | payer BC, MEDICAID, SELFPAY ==
[2025-02-04 16:11] VITALS: BP 112/78; PULSE 77; RESP 18; TEMP 36.9; O2SAT 100; BMI 35.9
[2025-02-04 16:14] VITALS: BP 112/78; PULSE 77; RESP 18; TEMP 36.9; O2SAT 100
[2025-02-04 17:14] VITALS: BP 111/79; PULSE 86; RESP 18; TEMP 36.8; O2SAT 98
[2025-02-04 17:35] LABS: AST(SGOT) 18 U/L (<=31); Alanine Aminotransfer ALT/SGPT 16 U/L (<=34); Albumin, Serum 4.3 g/dL (3.5-5.0); Alkaline Phosphatase 70 U/L (35-104); Anion Gap 8 (5-15); BUN 10 mg/dL (4-19); BUN/Creat Ratio 18.1 RATIO (10-20); CRP 11.80 mg/L (0.0-3.0); Calcium,Total 9.3 mg/dL (7.6-11.0); Carbon Dioxide 25.1 mmol/L (21.0-32.0); Chloride 106 mmol/L (98-108); Estimated Creatinine Clearance 153.67 ml/min (50-250); Globulin 3.4 g/dL (2.2-4.2); Glucose 104 mg/dL (70-99); Potassium 4.1 mmol/L (3.3-5.1)
[2025-02-04 17:51] LABS: Hematocrit 38.4 % (37-47); Hemoglobin 12.6 g/dL (12.0-15.0); Immature Granulocytes Count 0.020 X10^3/uL (0.0-0.0); Mean Corp Hgb Conc 32.8 g/dL (32-36); Mean Corpuscular Volume 84.8 fL (81-99); Mean Platelet Vol. 10.6 fl (6.2-12.0); NRBC Flagged by Analyzer 0 % (0-5); Platelet Count 335 K/mm3 (150-450); RBC Distribution Width CV 11.8 % (11.6-14.6); RBC Distribution Width SD 35.9 fl (35.1-43.9); Red Blood Count 4.53 M/mm3 (4.2-5.4); White Blood Count 8.9 K/mm3 (4.4-11.0)
[2025-02-04 18:00] VITALS: BP 101/72; PULSE 69; RESP 18; TEMP 36.7; O2SAT 100
[2025-02-04] MEDS: Lidocaine 1% (20 ml mdv) 20 ML Vial INFILT (18:13)
--- NOTE | 2025-02-04 19:09 | EDS_ITS ---
HPI History of Present Illness Chief Complaint: Lower Extremity Injury Detail of Chief Complaint: Pain MTP joint right great toe Informant: patient Onset/Context/Timing Onset: - (Detailed HPI narrative) Context: Sudden Onset Timing: Continuous Quality: Pain Location: Right great toe MTP joint Current Severity: Mild Maximum Severity: Moderate Worsened by: Movement and palpation Relieved by: Nothing Associated Symptoms Associated Symptoms: Rash Narrative Narrative: Patient is a 29-year-old female. She has history of autoimmune disorder/ankylosing spondylitis. She has had an erythematous rash for approximately 3 months dorsal surface right foot involving the proximal portion of the right great toe and medial dorsal surface of the right foot. She denies fever, chills night sweats. She was seen by her clinical rehabilitation coordinator and received a steroid injection on January 15. She then was placed on a long tapering dose of prednisone. 6 days ago she was started on cephalexin. She has no history of gout or pseudogout. She denies any recent surgical or dental procedures. She denies fever, chills or night sweats. She denies weight gain or weight loss. She denies history of trauma. She did have x-rays through the [facility]. They were interpreted by radiologist as negative. Prior similar symptoms: Yes Recent Illness/Hospitalization: [facility] Medical History Peptic ulcer disease Septic joint Autoimmune disease Anxiety Gastrointestinal problem Emotional problems UTI (urinary tract infection) Arthritis Anemia Fibromyalgia Lupus Celiac disease Ankylosing spondylitis Depression Ovarian cyst MRSA (methicillin resistant Staphylococcus aureus) Home Medications ?Medication ?Instructions ?Recorded ?Last Taken ?Type docosahexaenoic acid 1 cap PO DAILY 11/0902/16/24 09:00 History famotidine 20 mg tablet (Acid 40 mg PO DAILY gerd 11/1702/16/24 21:00 History Controller) hydrocodone-acetaminophen 5-325mg 1 tab PO Q6H PRN PRN Pain 3 days 02/04/25 Unknown Rx 5mg-325mg #10 TABLETS Allergy/AdvReac Type Severity Reaction Status Date / Time escitalopram (From Lexapro) Allergy altered Verified 02/04/25 16:11 mental state promethazine (From Phenergan) AdvReac Other Verified 02/04/25 16:11 Family History Other Anxiety Asthma CVA (cerebral vascular accident) Cancer Colon cancer Depression Diabetes H/O psychiatric care Mental disorder Suicide attempt Surgical History Hx of foot surgery History of cholecystectomy h/o right elbow I&D Social History Smoking Status: Former smoker alcohol intake: current details: occasional 1-3x month substance use type: does not use what type of physical activity do you participate in: walking ROS ROS ED Constitutional Constitutional ED: Denies chills, fever(s), subjective, sweats or weight loss Eyes Eyes: Reports other Details: Denies photophobia. ; Denies blurry vision, change in vision or diplopia Gastrointestinal Gastrointestinal: Denies nausea or vomiting Musculoskeletal Musculoskeletal: Reports back pain; Denies arthralgias or myalgias Integumentary Reports rash Neurologic Neurologic: Denies paresthesias or weakness Hematologic/Lymphatic Hematologic/Lymphatic: Denies easy bleeding or easy bruising EXAM Physical Exam Const Vital Signs: 02/04/25 16:11 02/04/25 16:14 02/04/25 17:14 Temperature 98.4 F 98.4 F 98.3 F Temperature Source Oral Oral Oral Pulse Rate 77 77 86 Respiratory Rate 18 18 18 Blood Pressure 112/78 112/78 111/79 Blood Pressure Mean 89 89 89 Pulse Ox 100 100 98 Oxygen Delivery Method Room Air Room Air Room Air 02/04/25 18:00 Temperature 98.1 F Temperature Source Oral Pulse Rate 69 Respiratory Rate 18 Blood Pressure 101/72 Blood Pressure Mean 81 Pulse Ox 100 Oxygen Delivery Method Room Air Positive well nourished and well developed General Appearance ED: well developed and NAD; Negative for pallor HEENT Reports moist mucous membranes HEENT Narrative: Head is atraumatic and normocephalic. Ears normal. Nares patent. Eyes PERRL and EOMs intact bilaterally Eyes Narrative: There is no photophobia. General Eye ED: Negative for scleral icterus Resp normal respiratory effort Cardio regular rate and regular rhythm Extremity Negative for normal to inspection Extremity Narrative: There is slight swelling of the right great toe. There is tenderness of the MTP joint of the right great toe. There is erythema on the proximal dorsal surface of the right great toe and medial dorsal surface of the right foot. There is no lymphangitis. There is no popliteal lymphadenopathy. There is no warmth, induration or fluctuance appreciated. There is some bogginess of the MTP joint. Neuro oriented x3 and CN's II-XII intact bilaterally Sensorium / Orientation: alert Psych mental status grossly normal Skin No no wounds and skin turgor normal General Skin Exam: Negative for jaundice or pallor Rashes: rashes noted MDM MDM MDM Narrative Medical decision making narrative: With patient having pain isolated to the MTP joint of the right great toe suspect either crystal induced arthritis i.e. pseudogout or gout. Also need to entertain possibility of pyogenic arthritis. Since images were done less than a week ago they were not repeated. Blood work was obtained including inflammatory markers. Patient was consented for arthrocentesis of the MTP joint of her great toe. Lab Data Attestation: I reviewed the patient's lab results. Lab results narrative: CBC is normal. Electrolyte panel is unremarkable. C-reactive protein is elevated 11.8. ESR is normal. There was only enough fluid for culture. Labs: Laboratory Results - last 24 hr 02/04/25 02/04/25 16:56 18:00 WBC 8.9 RBC 4.53 Hgb 12.6 Hct 38.4 MCV 84.8 MCH 27.8 MCHC 32.8 RDW Std Deviation 35.9 RDW Coeff of Jimmie 11.8 Plt Count 335 MPV 10.6 Immature Gran % (Auto) 0.200 Neut % (Auto) 66.6 Lymph % (Auto) 24.6 [place] % (Auto) 6.2 Eos % (Auto) 1.7 Baso % (Auto) 0.7 Absolute Neuts (auto) 5.9 Absolute Lymphs (auto) 2.18 Nucleated RBC % 0 ESR 8 Sodium 139 Potassium 4.1 Chloride 106 Carbon Dioxide 25.1 Anion Gap 8 BUN 10 Creatinine 0.57 L Estim Creat Clear Calc 153.67 Est GFR (MDRD) Non-Af 128 BUN/Creatinine Ratio 18.1 Glucose 104 H Calcium 9.3 Total Bilirubin 0.32 AST 18 ALT 16 Alkaline Phosphatase 70 C-React Prot Ext Range 11.80 H Total Protein 7.7 Albumin 4.3 Globulin 3.4 Albumin/Globulin Ratio 1.3 Fluid Crystals Cancelled Fluid Crystal Source Cancelled Fl Crystal Path Review Cancelled Synovial Source Cancelled Synovial Color Cancelled Synovial Appearance Cancelled Synovial Volume Cancelled Synovial Viscosity Cancelled Synovial WBC Cancelled Synovial RBC Cancelled Synovial Tot Cell Ct Cancelled Synov Polynuclear WBCs Cancelled Synov Mononuclear WBCs Cancelled Synovial Neutrophils Cancelled Synovial Lymphocytes Cancelled Synovial Monocytes Cancelled Synovial Plasma Cells Cancelled Synovial Other Cells Cancelled Synovial Polynuclear % Cancelled Synovial Mononuclear % Cancelled Synovial Path Comment Cancelled Procedures Other Procedures Procedure(s): Patient was consented for arthrocentesis of the MTP joint of her right great toe. Area was prepped draped. Skin was anesthetized with 1% lidocaine. The MTP joint was entered. There was some bloody material that was aspirated. This was sent for culture since there was insufficient fluid to assess for crystals and cell count. Discharge Plan Triage Chief Complaint: Lower Extremity Injury ED Provider: Xavier Anderson Dx/Rx/DC Orders Clinical Impression: Pain of right great toe, Autoimmune disease, Ankylosing spondylitis, Erythematous rash Instructions: ED Pain, Acute, Uncertain Cause Prescriptions: New hydrocodone-acetaminophen 5-325 mg tablet 1 tab PO Q6H PRN PRN (Reason: Pain) 3 Days Qty: 10 0RF No Action docosahexaenoic acid [ DHA] 1 cap PO DAILY famotidine [Acid Controller] 20 mg tablet 40 mg PO DAILY Primary Care Provider: Jhony Cook Referrals: Jhony Cook MD [Primary Care Provider, Internal Medicine] - 3-5 Days Print Language: French Disposition Disposition: Home, Self Care
[2025-02-04 19:22] VITALS: BP 102/68; PULSE 68; RESP 15; TEMP 36.6; O2SAT 100
== END 2025-02-04 19:24 | disposition home or self-care (01) ==
PROVIDERS: Emergency Provider Emergency Medicine; PCP Internal Medicine; Visit Provider Emergency Medicine
DX: M79.674 Pain in right toe(s) (principal); M45.9 Ankylosing spondylitis of unspecified sites in spine; R21 Rash and other nonspecific skin eruption; Z87.891 Personal history of nicotine dependence
CPT/HCPCS: 80053; 85025; 85652; 86140; 87070; 87075; 87205; 96374; 99283; A4216